=== PATIENT | male | born 1945 | race American Indian/Alaskan Native ===

== ENCOUNTER 2016-09-25 11:05 | Outpatient (CLI) | payer MEDICARE ==
--- NOTE | 2016-09-25 12:51 | Cat Scan Report ---
CT ABDOMEN AND PELVIS WITHOUT CONTRAST INDICATION: Right CVA pain. COMPARISON: None similar. FINDINGS: Noncontrast abdomen and pelvis CT performed. LUNG BASES: Borderline cardiomegaly. No effusions. Slight nonspecific distal esophageal prominence or thickening. Right hemidiaphragm mildly elevated. ABDOMEN: Please note that sensitivity to detect small visceral lesions is limited due to the absence of intravenous or oral contrast. Motion artifact also partly degrades exam. However, grossly unremarkable unenhanced liver, spleen gallbladder, pancreas and IVC. Normal adrenals, except for diffuse left adrenal medial limb prominence/hyperplasia possible. Nonaneurysmal abdominal aorta with few atherosclerotic calcifications. Bilateral iliac artery calcifications as well, borderline aneurysmal on the right at 1.5 cm diameter while mildly aneurysmal on the left at 1.8 cm, axial image 62. No ascites or definite size significant adenopathy. Nonopacified GI tract evaluation limited, though grossly nonobstructive. Normal appendix. Mild to moderate stool predominantly along the ascending and transverse colon/possible constipation. Fat containing umbilical hernia with a transverse neck of approximately 2 cm. 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 No definite radiopaque renal calculi. PELVIS: Prominent/mildly enlarged prostate, though possibly age-appropriate, may also be correlated for clinically and with PSA. Few pelvic phleboliths. Somewhat prominent, though grossly symmetric seminal vesicles. Suboptimally distended and assessed urinary bladder with diffuse exaggerated wall thickness measuring up to 1 cm anteriorly. No perivesicular fat stranding. Rectosigmoid stool. No free fluid or significant adenopathy. Fat containing left inguinal hernia measuring 2.5 cm in diameter. Multilevel imaged spinal degenerative spurring. L5-S1 disc narrowing and slight vacuum phenomenon. Bilateral SI joint degenerative bridging with partial joint space obliteration. Diffuse right hemipelvic sclerosis and slight trabecular prominence may represent Paget's disease. CONCLUSION: 1. No radiopaque renal calculi or acute CT abnormality, though right renal malrotation incidentally noted on this limited exam, as described. 2. Various other incidental findings, including mild elevated right hemidiaphragm, possible constipation, aneurysmal left common iliac artery, exaggerated urinary bladder wall thickness and fat-containing left inguinal hernia in this patient with right hemipelvic probable Paget's disease, as detailed above. Please correlate. Thank you for the opportunity to participate in this patient's care.
== END 2016-09-25 11:06 | disposition home or self-care (01) ==
LOC: CT 11:05
PROVIDERS: ATTEND Internal Medicine
DX: R10.9 Unspecified abdominal pain (principal)
CPT/HCPCS: 74176

== ENCOUNTER 2016-10-24 14:54 | Outpatient (CLI) | payer MEDICARE ==
--- NOTE | 2016-10-24 15:30 | XRay Report ---
CHEST 2 VIEWS INDICATION: Right-sided chest pain. COMPARISON: None similar. FINDINGS: PA and lateral chest radiographs demonstrate normal cardiomediastinal silhouette. Clear lungs. Bony demineralization and few degenerative changes. CONCLUSION: No acute disease in the chest. Thank you for the opportunity to participate in this patient's care.
== END 2016-10-24 14:55 | disposition home or self-care (01) ==
LOC: XRAY 14:54
PROVIDERS: ATTEND Internal Medicine
DX: R07.89 Other chest pain (principal)
CPT/HCPCS: 71020

== ENCOUNTER 2020-12-02 14:41 | Inpatient (IN) | payer MEDICARE ==
[2020-12-02] MEDS ORDERED: DEXTROSE 50% IN WATER (25GM) 50 ML SYRINGE IV PRN (17:50)
[2020-12-02] MEDS ORDERED: hydrALAZINE 20 MG/1 ML INJ IV PRN (17:55)
[2020-12-02] MEDS ORDERED: ONDANSETRON 4 MG ODT TAB PO PRN (17:55)
[2020-12-02] MEDS ORDERED: ALBUTEROL 2.5 MG/3 ML NEBU IH PRN (17:55)
[2020-12-02] MEDS ORDERED: CYCLOBENZAPRINE 10 MG TAB PO PRN (17:56)
[2020-12-02] MEDS: hydrALAZINE 25 MG TAB PO SCH (21:59)
[2020-12-02] MEDS: HEPARIN 5,000 UNIT/1 ML VIAL SUB-Q SCH (22:00)
[2020-12-02] MEDS: INSULIN LISPRO 100 UNIT/ML SUB-Q SCH (22:00)
[2020-12-02] MEDS: POLYETHYLENE GLYCOL 3350 17 GM POWDER PO PRN (22:04)
[2020-12-03] MEDS: hydrALAZINE 25 MG TAB PO SCH ×3 (05:23→22:51)
[2020-12-03] MEDS: INSULIN LISPRO 100 UNIT/ML SUB-Q SCH ×4 (07:50→22:50)
[2020-12-03 08:14] LABS: Alanine Aminotransferase 16 units/L (7-56); Albumin 3.9 g/dL (3.9-5); BUN/Creatinine Ratio 16; Blood Urea Nitrogen 14 mg/dL (9-20); Calcium 9.3 mg/dL (8.4-10.2); Hemolysis Index 11
[2020-12-03] MEDS: CLOPIDOGREL 75 MG TAB PO SCH (08:23)
[2020-12-03] MEDS: TAMSULOSIN 0.4 MG CAP PO SCH (08:23)
[2020-12-03] MEDS: ASPIRIN EC 81 MG TAB PO SCH (08:23)
[2020-12-03] MEDS: metFORMIN 500 MG TAB PO SCH ×2 (08:23→16:58)
[2020-12-03] MEDS: amLODIPine 10 MG TAB PO SCH (08:23)
[2020-12-03] MEDS: LISINOPRIL 40 MG TAB PO SCH (08:23)
[2020-12-03 08:52] LABS: Basophils % (Auto) 0.4 % (0.0-1.8); Eosinophils # (Auto) 0.2 K/mm3 (0.0-0.4); Eosinophils % (Auto) 3.2 % (0.0-4.3); Hematocrit 43.5 % (35.5-45.6); Hemoglobin 14.7 gm/dl (11.8-15.2); Lymphocytes # (Auto) 1.8 K/mm3 (1.2-5.4); Lymphocytes % (Auto) 33.3 % (13.4-35.0); Mean Corpuscular HGB Conc 34 % (32-34); Mean Corpuscular Volume 92 fl (84-94); Monocytes # (Auto) 0.6 K/mm3 (0.0-0.8); Monocytes % (Auto) 10.4 % (0.0-7.3); Platelet Count 162 K/mm3 (140-440); Red Blood Count 4.74 M/mm3 (3.65-5.03); Red Cell Distribution Width 14.8 % (13.2-15.2)
[2020-12-03] MEDS: HEPARIN 5,000 UNIT/1 ML VIAL SUB-Q SCH ×2 (09:58→22:49)
[2020-12-03] MEDS: BRIMONIDINE 0.15% OPHTH SOLN OU SCH (10:01)
--- NOTE | 2020-12-03 10:17 | History and Physical Report ---
History of Present Illness Date: 12/03/20 Date of admission: 12/02/20 19:42 Chief Complaint: CVA History of present illness: 75-year-old male brought to the hospital with difficulty speaking and gait/balance issues. Symptoms started previous day on a flight from [place] to [place] with a layover in [place] at which point he could not walk. Because of this he was outside the window for TPA and had a low stroke score. Clinical picture was not consistent with large vessel occlusion. A1c at the outside hospital was 6.0. 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 Patient had mild aphasia. He was started on a modified diet for dysphagia. He was started on IV antihypertensives for hypertensive emergency. Neurology recommends dual antipl atelet therapy for 3 weeks followed by aspirin only regimen. MRI brain performed on 11/28 showed an acute to subacute 9 mm lacunar infarct in the left leopoldo. After the patient was medically stabilized they were transferred for further rehabilitation. All available medical records have been reviewed. Plan of care was discussed with patient. Upon evaluation today, the patient had severe allodynia in the right toe. Difficult to ascertain if this was possibly gout versus central pain. Patient d enies any kind of pain like this before and states that it has just recently started. Exquisite pain to light touch however he tolerates utilizing a shoe. With a light stroke of the side or top of the first metatarsal area his foot/toe go into extensor posture. Uric acid was within normal limits, toe is not red but is slightly swollen. X-ray showed no acute changes at this area. Is very well may be an issue with central pain. Outside notes do state that the patient had several remote bilateral thalamic strokes. Will start symptomatic treatment for the pain and escalate as needed to see if we can assist him with reducing his threshold of pain. Later, the patient experienced a feeling of being flushed and hot almost like he was going to faint. This subsided with cooling off the room and helping him back to bed. Vital signs at this point were within normal limits. We will continue to watch the patient closely to ensure that he is not have any other untoward effects. Patient denied any chest pain or shortness of breath at this time. Patient checked on again after results were available and patient, and son via phone were updated on his condition and plan of care. In total, greater than 110 minutes spent with the patient and his as well as therapy today evaluating and working up the patient's new complaints as well as reviewing his outside medical records. Past History Past Medical History: diabetes, hypertension, hyperlipidemia, stroke, other (BPH) Past Surgical History: cataract removal, Other (Right heart cath, finger) Social history: lives with family, full code. denies: smoking, alcohol abuse, prescription drug abuse Family history: CAD, diabetes, hypertension, stroke Medications and Allergies Allergies Allergy/AdvReac Type Severity Reaction Status Date / Time No Known Allergies Allergy Verified 10/21/13 08:18 Home Medications Medication Instructions Recorded Confirmed Last Taken Type Aspirin 81 mg PO DAILY 10/21/13 12/02/20 10/20/13 10:00 History Lisinopril [Zestril] 10 mg PO DAILY 10/21/13 12/02/20 10/20/13 10:00 History amLODIPine 10 mg PO DAILY 10/21/13 12/02/20 10/20/13 10:00 History AtorvaSTATin [Lipitor] 20 mg PO DAILY 12/02/20 12/02/20 Unknown History Brimonidine Tartrate [Brimonidine 1 drop OU BID 12/02/20 12/02/20 Unknown History Tartrate 0.2%] Tamsulosin [Flomax] 0.4 mg PO QDAY 12/02/20 12/02/20 Unknown History metFORMIN [Glucophage] 500 mg PO DAILY 12/02/20 12/02/20 Unknown History Active Meds: Active Medications Acetaminophen (Acetaminophen 325 Mg Tab) 650 mg PO Q6H PRN PRN Reason: Non Cardiac Pain or Temp>100.5 Albuterol (Albuterol 2.5 Mg/3 Ml Nebu) 2.5 mg IH Q4HRT PRN PRN Reason: Shortness Of Breath Amlodipine Besylate (Amlodipine 10 Mg Tab) 10 mg PO QDAY [facility] Last Admin: 12/03/20 08:23 Dose: 10 mg Documented by: Aspirin (Aspirin Ec 81 Mg Tab) 81 mg PO QDAY [facility] Last Admin: 12/03/20 08:23 Dose: 81 mg Documented by: Atorvastatin Calcium (Atorvastatin 20 Mg Tab) 20 mg PO QHS [facility] Last Admin: 12/02/20 21:59 Dose: 20 mg Documented by: Bisacodyl (Bisacodyl 10 Mg Rect Supp) 10 mg ME QDAY PRN PRN Reason: Constipation Brimonidine Tartrate (Brimonidine 0.15% Ophth Soln) 1 drops OU DAILY [facility] Last Admin: 12/03/20 10:01 Dose: 1 drops Documented by: Clopidogrel Bisulfate (Clopidogrel 75 Mg Tab) 75 mg PO QDAY [facility] Stop: 12/24/20 09:59 Last Admin: 12/03/20 08:23 Dose: 75 mg Documented by: Cyclobenzaprine HCl (Cyclobenzaprine 10 Mg Tab) 5 mg PO Q8H PRN PRN Reason: Muscle Spasm Dextrose (Dextrose 50% In Water (25gm) 50 Ml Syringe) 50 ml IV Q30MIN PRN; Protocol PRN Reason: Hypoglycemia Heparin Sodium (Porcine) (Heparin 5,000 Unit/1 Ml Vial) 5,000 unit SUB-Q Q12HR [facility] Last Admin: 12/03/20 09:58 Dose: 5,000 unit Documented by: Hydralazine HCl (Hydralazine 20 Mg/1 Ml Inj) 10 mg IV Q4HR PRN PRN Reason: Hypertension Hydralazine HCl (Hydralazine 25 Mg Tab) 25 mg PO Q8HR [facility] Last Admin: 12/03/20 05:23 Dose: 25 mg Documented by: Insulin Human Lispro (Insulin Lispro 100 Unit/Ml) 0 unit SUB-Q [facility]; Protocol Last Admin: 12/03/20 07:50 Dose: Not Given Documented by: Lisinopril (Lisinopril 40 Mg Tab) 40 mg PO QDAY [facility] Last Admin: 12/03/20 08:23 Dose: 40 mg Documented by: Metformin HCl (Metformin 500 Mg Tab) 500 mg PO BIDDIAB [facility] Last Admin: 12/03/20 08:23 Dose: 500 mg Documented by: Ondansetron HCl (Ondansetron 4 Mg Odt Tab) 4 mg PO Q8H PRN PRN Reason: Nausea And Vomiting Polyethylene Glycol (Polyethylene Glycol 3350 17 Gm Powder) 17 gm PO QDAY PRN PRN Reason: Constipation Last Admin: 12/02/20 22:04 Dose: 17 gm Documented by: Tamsulosin HCl (Tamsulosin 0.4 Mg Cap) 0.4 mg PO QDAY [facility] Last Admin: 12/03/20 08:23 Dose: 0.4 mg Documented by: Review of Systems All systems: negative (ROS negative for 10 systems except as noted below with pertinent positives and negatives.) Constitutional: fatigue, no fever, no chills Ears, nose, mouth and throat: decreased hearing, dysphagia, vertigo Cardiovascular: lightheadedness, no chest pain, no palpitations, no rapid/irreg ular heart beat, no edema Respiratory: no cough, no shortness of breath Gastrointestinal: no abdominal pain, no nausea, no vomiting, no diarrhea, no c onstipation Genitourinary Male: no dysuria Musculoskeletal: muscle weakness, gait dysfunction, other (Right great toe pain) Integumentary: no rash, no pruritis, no sores Neurological: weakness, parathesias, numbness, lack of coordination, aphasia, change in speech, gait dysfunction, burning pain (Allodynia right great toe) Psychiatric: no memory loss, no hallucinations Exam - Exam Narrative exam: MUSCULOSKELETAL SPECIALTY EXAM CONSTITUTIONAL: Well developed, well nourished, appropriately groomed. RIGHT hand dominant. LYMPHATIC: No appreciable abnormalities palpable in neck RESPIRATORY: Clear to auscultation bilaterally, no increased work of breathing CARDIOVASCULAR: Regular Rate/ Rhythm, no swelling, edema or tenderness in BUE or BLE. Pulses palpable in all extremities. All extremities warm. GI: + bowel sounds, soft, NTTP, nondistended. INTEGUMENTARY: Normal, no lesion, rash, masses or bruising noted in extremities. MUSCULOSKELETAL: Allodynia right great toe with extremely light touch over the first metatarsal area. BUE and BLE normal without defect, crepitus, subluxation, effusion, arthritic changes or TTP. R 2 /5 L 4+ /5 ROM decreased on right, normal on left Tone normal NEURO: CN II : Visual roy full to confrontation CN II, III : PERRL CN III, IV, : EOMI CN V : Facial sensation intact CN VII : Right facial droop CN VIII : Hearing intact to finger rustle with decreased hearing bilaterally CN IX, X : Palate/uvula elevate midline, dysarthria CN XI : Head rotation intact, decreased right shoulder shrug CN XII : Tongue protrudes slightly right Sensation intact in all extremities without extinction. Reflexes 2+ bilaterally at biceps, brachioradialis and patella. No clonus at ankles. Coordination impaired on right. No tremor noted in 4 extremities. Naming and repetition difficult to ascertain due to dysarthria Follows 2 step commands. Aphasia present Dysarthria present Dysphagia present Neglect not appreciated POSTURE and GAIT: Sitting posture good. Balance and gait deferred until seen with therapy due to s afety. PSYCH: Alert, oriented x3, affect appears euthymic. Insight appears intact. - Constitutional Vitals: Vital Signs - 12hr 12/03/20 12/03/20 12/03/20 04:22 05:23 07:44 Temperature 98.1 F 97.4 F L Pulse Rate 77 79 Respiratory 20 16 Rate Blood Pressure 144/83 144/83 148/85 O2 Sat by Pulse 95 94 Oximetry 12/03/20 12/03/20 08:23 08:30 Temperature Pulse Rate 79 Respiratory Rate Blood Pressure 148/85 O2 Sat by Pulse 94 Oximetry - Labs CBC & Chem 7: 12/03/20 06:56 12/03/20 06:56 Labs: Laboratory Results - last 72 hr 12/02/20 12/03/20 12/03/20 21:47 06:56 06:56 WBC 5.3 RBC 4.74 Hgb 14.7 Hct 43.5 MCV 92 MCH 31 MCHC 34 RDW 14.8 Plt Count 162 Lymph % (Auto) 33.3 [place] % (Auto) 10.4 H Eos % (Auto) 3.2 Baso % (Auto) 0.4 Lymph # (Auto) 1.8 [place] # (Auto) 0.6 Eos # (Auto) 0.2 Baso # (Auto) 0.0 Seg Neutrophils % 52.7 Seg Neutrophils # 2.8 Sodium 139 Potassium 3.8 Chloride 102.4 Carbon Dioxide 26 Anion Gap 14 BUN 14 Creatinine 0.9 Estimated GFR > 60 BUN/Creatinine Ratio 16 Glucose 92 POC Glucose 130 H Calcium 9.3 Total Bilirubin 0.60 AST 20 ALT 16 Alkaline Phosphatase 178 H Total Protein 7.0 Albumin 3.9 Albumin/Globulin Ratio 1.3 - Imaging and cardiology Other: report reviewed (Right foot x-ray), image reviewed Assessment and Plan Assessment and plan: Patient was assessed and evaluated for Acute Inpatient Rehab Unit. Due to the patients above-mentioned medical complexity, along with decreased functional mobility and self care, this patient continues to require and be appropriate for a comprehensive, multidisciplinary [id number] rehabilitation program. These needs cannot be met in an outpatient or other less intensive setting. The patient would continue to benefit from skilled therapy intervention for at least 3 hours per day, five days a week, with techniques specific to the needs of the patient to improve function, activities of daily living, and reintegration into the community. The patient continues to require: -- OT to improve ROM, self-care, and learn use of adaptive equipment -- PT to improve strength and balance, functional transfers, and ambulation with energy conservation techniques to improve functional mobility -- TOASTER OPERATOR to address cognitive deficits and swallowing ability -- 24 hour RN to ensure and prevent skin breakdown, promote progressive independence while ensuring safety, ensure education regarding medications, and incorporation of the rehabilitation at the bedside -- 24 hour Director Of Education to coordinate this interdisciplinary program, and to manage/prevent complications as a result of the patients medical comorbidities. -Plan of care by day 4 -Weekly team conferences With such a program, there is a reasonable certainty that the goals individualized for this patient can be achieved within the specified length of stay. CVA: Continue Secondary Stroke Prevention (Antithrombotic, Statin (Goal LDL-C <70), BP control (Goal <140/90), GLU control (Goal A1c <7), and lifestyle modification). Monitor for recurrent stroke or post-stroke recrudescence. Dual antiplatelet therapy for 21 days followed by aspirin alone. Statin okay to continue at lower dose as lipids are at goal. Continue neuromotor therapy as above. Family training when available. Monitor for post stroke depression, cognitive deficits, seizure, dysphagia, aphasia, shoulder hand syndrome, sensory deficits, spasticity, bowel/bladder deficits, sleep disturbance, vision deficits and DVT. Prognosis for recovery and Secondary Stroke Prevention discussed. Follow up with Neurology. No driving until cleared by Neurologist. MRI showed an acute/subacute 9 mm left leopoldo lacunar infarct. 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 Hypertension: Continue medication. Monitor blood pressure. Adjust medications as needed for normotension. Hold for hypotension. Goal SBP <140 Diabetes: Continue carb controlled diet. Monitor glucose on a regular level with target of euglycemia. Patient's most recent A1c is 6.0. Patient previously diet controlled. We will continue sliding scale and monitor for need to start any other medications. BPH: Continue Flomax, monitor for any signs of bladder dysfunction or incontinence. 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 Monitor for resolution over the coming days and escalate medication as needed. Dysarthria: Continue speech therapy to improve patient's ability to enunciate and make himself clearly understood. Aphasia: Continue speech therapy to improve patient's ability to communicate. At this point does not appear the patient will need alternative means of communication and hopefully this will clear over the coming days. Dysphagia: Continue modified diet. Speech therapy on board to monitor and upgrade diet as able once patient is able to swallow safely. MBS as needed. Monitor for safety and aspiration precautions in place. ADL dysfunction: OT will work on improving ability to perform ADLs (including assistive devices) to increase independence and decrease caregiver burden and improve functional transfers and mobility training. Difficulty walking: PT will work on gait training and proper use of assistive devices and advance as appropriate to use of stairs and outside ambulation on uneven surfaces. Unsteadiness on feet: PT will work on improving static and dynamic sitting and standing balance as well as proper use of assistive devices to decrease risk of falls. Abnormality of gait: PT will work to improve safety and efficiency of gait through neuromotor training and gait training along with instruction on proper use of assistive devices. Muscle weakness: PT & OT will work on strengthening exercises to improve functional strength including mixture of closed and open kinetic chain ex ercises. Debility: PT & OT will work on improving overall functional status to improve participation with ADLs, mobility and social involvement. Fatigue: PT & OT will work on improving endurance through aerobic exercises and therapeutic activity while monitoring patients tolerance for activity and vital signs as needed. DVT ppx: Heparin twice daily Pain: Continue physical modalities in therapy and pain medications as needed to achieve functional pain control. Sleep: Monitor and address as needed. Bowel: Monitor and address as needed. Appetite: Monitor and address as needed. Discharge planning: Pending therapy progress and care plan meeting. Will continue discussion with therapy team, SW, patient and family. Restrictions/ Precautions: Falls, aspiration WB status: FWB Functional Hx: ADLs: Independent Cognition: Independent Mobility: No AD Barriers to Discharge: Decreased mobility and ability to perform self care, balance deficits, weakness Estimated Length of Stay: 1014 days Discharge Destination: Home with family POST ADMISSION PHYSICIAN EVALUATION I have examined the patient and find that functional status, medical condition and appropriateness for IRF admission are essentially unchanged from those described in the preadmission screening. Will monitor for worsening neurologic dysfunction or decline, secondary stroke, shoulder-hand syndrome, central pain syndrome, sleep dysfunction, aspiration pneumonia, DVT/PE, bowel and bladder complications and complications due to hypertension, diabetes and electrolyte abnormalities. Will attempt to avoid occurrence of these issues or treat them if they present themselves.
--- NOTE | 2020-12-03 14:11 | XRay Report ---
. RIGHT FOOT 3 VIEWS INDICATION: Pain in the right MTP. COMPARISON: None. IMPRESSION: Bone mineralization is borderline. No acute osseous injury or bone lesion is identified. Mild osteoarthritic changes are identified in the midfoot and first metatarsophalangeal joint. No er osive joint pathology. The soft tissues are unremarkable. Signer Name: Dave Garcia Jr, MD Signed: 12/03/2020 2:07 PM Workstation Name: [id number]
[2020-12-03] MEDS: ACETAMINOPHEN 325 MG TAB PO PRN (22:53)
[2020-12-04] MEDS: hydrALAZINE 25 MG TAB PO SCH ×3 (06:27→22:07)
--- NOTE | 2020-12-04 07:58 | Progress Note ---
Subjective Date of service: 12/04/20 Principal diagnosis: CVA Interval history: 75-year-old male brought to the hospital with difficulty speaking and gait/balance issues. Symptoms started previous day on a flight from [place] to [place] with a layover in [place] at which point he could not walk. Because of this he was outside the window for TPA and had a low stroke score. Clinical picture was not consistent with large vessel occlusion. A1c at the outside hospital was 6.0. 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 Patient had mild aphasia. He was started on a modified diet for dysphagia. He was started on IV antihypertensives for hypertensive emergency. Neurology recommends dual antiplatelet therapy for 3 weeks followed by aspirin only regimen. MRI brain performed on 11/28 showed an acute to subacute 9 mm lacunar infarct in the left leopoldo. Interval History: Patient is participating in therapy and making reasonable progress. Taking rest breaks as needed. +BM. Denies pain, palpitations, dyspnea, cough, N/V, or joint pain. CVA: Continue secondary stroke prevention. No signs of worsening neurologic function, shoulder-hand syndrome or spasticity. Continue therapy to improve function. Resting hand splint for right upper extremity to improve function, increase stretching during time out of therapy and reduce risk of contracture. Hypertension: Patient mostly at goal with blood pressure. Continue to monitor and modify dose to keep patient less than 140/90 Diabetes: Fairly well controlled so far. Continue carb controlled diet and medications and adjust for euglycemia. Dysarthria: Continue speech therapy to improve patient's ability to enunciate more clearly. Aphasia: Continue speech therapy to improve patient's ability to communicate and make his needs known. Dysphagia: Continue modified diet and speech therapy. MBS as needed. Advance as able ? Central pain syndrome? Allodynia of right great toe: Improved today. Patient did not have any reaction to pressure on the same area which caused a increased reaction yesterday. We will continue to monitor for any more outbreaks and start medications if needed. At this point, would tend to not start medications on a scheduled basis if it has improved significantly. All records, vitals, labs and medications were reviewed. No other issues per patient, nursing or therapy. Objective - Exam Narrative Exam: MUSCULOSKELETAL SPECIALTY EXAM CONSTITUTIONAL: Well developed, well nourished, appropriately groomed. RIGHT hand dominant. RESPIRATORY: Clear to auscultation bilaterally, no increased work of breathing CARDIOVASCULAR: Regular Rate/ Rhythm, no swelling, edema or tenderness in BUE or BLE. Pulses palpable in all extremities. All extremities warm. GI: + bowel sounds, soft, NTTP, nondistended. INTEGUMENTARY: Normal, no lesion, rash, masses or bruising noted in extremities. MUSCULOSKELETAL: Allodynia right great toe over the first metatarsal area not tender to palpation today. BUE and BLE normal without defect, crepitus, subluxation, effusion, arthritic changes or TTP. R 2 /5 L 4+ /5 ROM decreased on right, normal on left Tone normal NEURO: CN VII : Right facial droop CN VIII : Hearing intact to finger rustle with decreased hearing bilaterally CN XI : Head rotation intact, decreased right shoulder shrug CN XII : Tongue protrudes slightly right Sensation intact in all extremities without extinction. No tremor noted in 4 extremities. Follows 2 step commands. Aphasia present Dysarthria present Dysphagia present Neglect not appreciated POSTURE and GAIT: Sitting posture good. Balance and gait deferred until seen with therapy due to safety. PSYCH: Alert, oriented x3, affect appears euthymic. Insight appears intact. - Constitutional Vitals: Vital Signs - 12hr 12/03/20 12/03/20 12/03/20 19:59 21:34 22:51 Temperature 97.8 F Pulse Rate 79 Respiratory 18 Rate Blood Pressure 145/85 Blood Pressure 141/87 [Left] O2 Sat by Pulse 95 97 Oximetry 12/04/20 12/04/20 12/04/20 04:00 06:27 06:43 Temperature 97.6 F 98.5 F Pulse Rate 79 82 Respiratory 18 18 Rate Blood Pressure 143/86 129/77 Blood Pressure 145/76 [Left] O2 Sat by Pulse 95 95 Oximetry - Allied health notes Allied health notes reviewed: nursing, PT, ST, OT FIMS assessment as documented by PT/OT/ST: Locomotion- walk/wheelchair Ambulation Distance 1 - Labs CBC & Chem 7: 12/03/20 06:56 12/03/20 06:56 Labs: Laboratory Results - last 72 hr 12/02/20 12/03/20 12/03/20 21:47 06:56 06:56 WBC 5.3 RBC 4.74 Hgb 14.7 Hct 43.5 MCV 92 MCH 31 MCHC 34 RDW 14.8 Plt Count 162 Lymph % (Auto) 33.3 Tucker % (Auto) 10.4 H Eos % (Auto) 3.2 Baso % (Auto) 0.4 Lymph # (Auto) 1.8 Tucker # (Auto) 0.6 Eos # (Auto) 0.2 Baso # (Auto) 0.0 Seg Neutrophils % 52.7 Seg Neutrophils # 2.8 Sodium 139 Potassium 3.8 Chloride 102.4 Carbon Dioxide 26 Anion Gap 14 BUN 14 Creatinine 0.9 Estimated GFR > 60 BUN/Creatinine Ratio 16 Glucose 92 POC Glucose 130 H Uric Acid Calcium 9.3 Total Bilirubin 0.60 AST 20 ALT 16 Alkaline Phosphatase 178 H Total Protein 7.0 Albumin 3.9 Albumin/Globulin Ratio 1.3 12/03/20 12/03/20 12/03/20 08:42 13:56 16:52 WBC RBC Hgb Hct MCV MCH MCHC RDW Plt Count Lymph % (Auto) Tucker % (Auto) Eos % (Auto) Baso % (Auto) Lymph # (Auto) Tucker # (Auto) Eos # (Auto) Baso # (Auto) Seg Neutrophils % Seg Neutrophils # Sodium Potassium Chloride Carbon Dioxide Anion Gap BUN Creatinine Estimated GFR BUN/Creatinine Ratio Glucose POC Glucose 117 H 160 H Uric Acid 6.9 Calcium Total Bilirubin AST ALT Alkaline Phosphatase Total Protein Albumin Albumin/Globulin Ratio 12/03/20 12/04/20 21:08 07:43 WBC RBC Hgb Hct MCV MCH MCHC RDW Plt Count Lymph % (Auto) Tucker % (Auto) Eos % (Auto) Baso % (Auto) Lymph # (Auto) Tucker # (Auto) Eos # (Auto) Baso # (Auto) Seg Neutrophils % Seg Neutrophils # Sodium Potassium Chloride Carbon Dioxide Anion Gap BUN Creatinine Estimated GFR BUN/Creatinine Ratio Glucose POC Glucose 100 95 Uric Acid Calcium Total Bilirubin AST ALT Alkaline Phosphatase Total Protein Albumin Albumin/Globulin Ratio Assessment and Plan CVA: Continue Secondary Stroke Prevention (Antithrombotic, Statin (Goal LDL-C <70), BP control (Goal <140/90), GLU control (Goal A1c <7), and lifestyle modification). Monitor for recurrent stroke or post-stroke recrudescence. Dual antiplatelet therapy for 21 days followed by aspirin alone. Statin okay to continue at lower dose as lipids are at goal. Continue neuromotor therapy as above. Family training when available. Monitor for post stroke depression, cognitive deficits, seizure, dysphagia, aphasia, shoulder hand syndrome, sensory deficits, spasticity, bowel/bladder deficits, sleep disturbance, vision deficits and DVT. Prognosis for recovery and Secondary Stroke Prevention discussed. Follow up with Neurology. No driving until cleared by Neurologist. MRI showed an acute/subacute 9 mm left leopoldo lacunar infarct. 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 Hypertension: Continue medication. Monitor blood pressure. Adjust medications as needed for normotension. Hold for hypotension. Goal SBP <140 Diabetes: Continue carb controlled diet. Monitor glucose on a regular level with target of euglycemia. Patient's most recent A1c is 6.0. Patient previously diet controlled. We will continue sliding scale and monitor for need to start any other medications. BPH: Continue Flomax, monitor for any signs of bladder dysfunction or incontinence. 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 Stepwise progression of NSAIDs with progression to include gabapentin and possible other medications. Monitor for resolution over the coming days and escalate medication as needed. Dysarthria: Continue speech therapy to improve patient's ability to enunciate and make himself clearly understood. Aphasia: Continue speech therapy to improve patient's ability to communicate. At this point does not appear the patient will need alternative means of communication and hopefully this will clear over the coming days. Dysphagia: Continue modified diet. Speech therapy on board to monitor and upgrade diet as able once patient is able to swallow safely. MBS as needed. Monitor for safety and aspiration precautions in place. ADL dysfunction: OT will work on improving ability to perform ADLs (including assistive devices) to increase independence and decrease caregiver burden and improve functional transfers and mobility training. Difficulty walking: PT will work on gait training and proper use of assistive devices and advance as appropriate to use of stairs and outside ambulation on uneven surfaces. Unsteadiness on feet: PT will work on improving static and dynamic sitting and standing balance as well as proper use of assistive devices to decrease risk of falls. Abnormality of gait: PT will work to improve safety and efficiency of gait through neuromotor training and gait training along with instruction on proper use of assistive devices. Muscle weakness: PT & OT will work on strengthening exercises to improve functional strength including mixture of closed and open kinetic chain exercises. Debility: PT & OT will work on improving overall functional status to improve participation with ADLs, mobility and social involvement. Fatigue: PT & OT will work on improving endurance through aerobic exercises and therapeutic activity while monitoring patients tolerance for activity and vital signs as needed. DVT ppx: Heparin twice daily Pain: Continue physical modalities in therapy and pain medications as needed to achieve functional pain control. Sleep: Monitor and address as needed. Bowel: Monitor and address as needed. Appetite: Monitor and address as needed. Discharge planning: Pending therapy progress and care plan meeting. Will continue discussion with therapy team, SW, patient and family. Restrictions/ Precautions: Falls, aspiration WB status: FWB Functional Hx: ADLs: Independent Cognition: Independent Mobility: No AD Barriers to Discharge: Decreased mobility and ability to perform self care, balance deficits, weakness Estimated Length of Stay: 1014 days Discharge Destination: Home with family
[2020-12-04] MEDS: TAMSULOSIN 0.4 MG CAP PO SCH (09:08)
[2020-12-04] MEDS: CLOPIDOGREL 75 MG TAB PO SCH (09:08)
[2020-12-04] MEDS: amLODIPine 10 MG TAB PO SCH (09:08)
[2020-12-04] MEDS: LISINOPRIL 40 MG TAB PO SCH (09:09)
[2020-12-04] MEDS: ASPIRIN EC 81 MG TAB PO SCH (09:09)
[2020-12-04] MEDS: HEPARIN 5,000 UNIT/1 ML VIAL SUB-Q SCH ×2 (09:09→22:07)
[2020-12-04] MEDS: metFORMIN 500 MG TAB PO SCH ×2 (09:09→17:47)
[2020-12-04] MEDS: INSULIN LISPRO 100 UNIT/ML SUB-Q SCH ×4 (09:16→22:11)
[2020-12-04] MEDS: BRIMONIDINE 0.15% OPHTH SOLN OU SCH (09:17)
[2020-12-04] MEDS: POLYETHYLENE GLYCOL 3350 17 GM POWDER PO PRN (13:17)
--- NOTE | 2020-12-04 20:09 | IRU Plan of Care ---
Interdisciplinary Plan of Care - IP IRU INTERDISCIPLINARY PLAN: [facility] Inpatient Rehab Unit Plan of Care IRU Interdisciplinary Care Plan Start: 12/03/20 12:05 Freq: Status: Active Protocol: Document 12/04/20 18:40 TH (Rec: 12/04/20 18:53 TH [id number]) Interdisciplinary Problem List Interdisciplinary Problem List Interdisciplinary Problem List Impaired Eating/Swallowing, Query Text:Answers will Trigger Problems Impaired Bathing/Grooming, and Outcomes on Worklist. Impaired Dressing,Impaired Mobility,Impaired Transfers, Impaired Bladder/Bowel Management,Impaired Toileting, Impaired Expression,Knowledge Deficits,Discharge Concerns, Impaired Safety,Medications Education,Diabetes Education, Impaired Oxygenation,Impaired Cardiovascular System IRU Interdisciplinary Care Plan Therapy Services Therapy Services Will Include: Physical Therapy,Occupational Query Text:Patient will be seen for a Therapy,Speech Therapy minimum of 3 hours of daily therapy 5 out of 7 days a week. Therapy intensity may be adjusted within a 7 consecutive day period to effectively serve the individual needs of the patient. Treatment Frequency/Intensity/Duration Treatment Frequency 5x weekly Treatment Intensity 3 hours per day Treatment Duration 7-14 days Problem Area: Eating/Swallowing Eating/Swallowing Outcomes Feed Self Eating/Swallowing Interventions Use of Assistive Devices, Compensatory Strategies, Neuromuscular Re-Education,ADL Training,Patient/Caregiver Education Problem Area: Bathing/Grooming Bathing/Grooming Outcomes Improve [place] w/ Grooming,Improve [place] w/ Bathing Bathing/Grooming Interventions ADL Training,Use of Assistive Devices,Therapeutic Exercise, Therapeutic Activity, Neuromuscular Re-Education, Balance Work,Activity Tolerance Work,Patient/ Caregiver Education Problem Area: Dressing Dressing Outcomes Improve [place] w/ UB Dressing,Improve [place] w/ LB Dressing Dressing Interventions ADL Training,Use of Assistive Devices,Neuromuscular Re- Education,Therapeutic Exercise ,Balance Work,Modalities, Patient/Caregiver Education Problem Area: Mobility Mobility Outcomes Improve [place] w/ Bed Mobility,Improve [place] w/ Ambulation,Improve [place] w/ Stairs/Curb, Improve [place] w/ Wheelchair Mobility Interventions Therapeutic Exercise, Neuromuscular Re-Ed.,Activity Tolerance Work,Use of Assistive Devices,Patient/ Caregiver Education,Bed Mobility Work,Gait Training, Household Mobility Work,W/C Mobility Work Problem Area: Transfers Transfers Outcomes Improve [place] w/ Bed Transfers,Improve [place] w/ Car Transfers Transfers Interventions Transfer Training,Therapeutic Exercise,Neuromuscular Re- Education,Activity Tolerance Work,Use of Assistive Devices, Patient/Caregiver Education Problem Area: Bowel/Bladder Managment Bowel/Bladder Outcomes Bowel/Bladder Interventions Problem Area: Toileting Toileting Outcomes Improve [place] w/ Toileting Toileting Interventions ADL Training,Balance Work,Use of Assistive Devices,Patient/ Caregiver Education Problem Area: Nutrition Nutrition Outcomes Nutrition Interventions Problem Area: Comprehension Comprehension Outcomes Comprehension Interventions Problem Area: Expression Expression Outcomes Improve Intelligibility Expression Interventions Patient/Caregiver Education Problem Area: Problem Solving Problem Solving Outcomes Problem Solving Interventions Problem Area: Memory Memory Outcomes Memory Interventions Problem Area: Pain Management Pain Management Outcomes Demonstrate/Verbalize Pain Strategies Pain Management Interventions Use of Devices/Modalities ( TENS, hot pack, cold pack, etc .),Positioning/Turning Problem Area: Knowledge Deficits Knowledge Deficits Outcomes Demonstrate Ability to Manage Blood Glucose,Verbalize Understanding of S/S of Stroke Knowledge Deficits Interventions Body Mechanics/Joint Protection Education,Safety Education Problem Area: Skin/Tissue Integrity Skin/Tissue Integrity Outcomes Skin/Tissue Integrity Interventions Problem Area: Social Interaction Social Interaction Outcomes Social Interaction Interventions Problem Area: Adjustment to Disability Adjustment to Disability Outcomes Adjustment to Disability Interventions Problem Area: Discharge Concerns Discharge Concerns Outcomes Discharge w/ Necessary Equipment,Have Home Health/ Outpatient Services Discharge Concerns Interventions Discharge Planning,Equipment Assessment, Acquisition and Placement,Family/Caregiver Training Problem Area: Community Reintegration Community Reintegration Outcomes Community Reintegration Interventions Problem Area: Home Management Home Management Outcomes Home Management Interventions Problem Area: Safety Safety Outcomes Provide Safe Environment, Demonstrate Good Safety w/ Transfers/Mobility Safety Interventions Identify Fall Risk Problem Area: Medication Education Medication Education Outcomes Medication Education Interventions Problem Area: Diabetes Education Diabetes Education Outcomes Demonstrate Knowledge of Resources Availlable in Diabetic Ed. Folder Diabetes Education Interventions Give Pt. Diabetes Education Folder,Review Instruction on Making Appointment for Outpatient Program Problem Area: Oxygenation Oxygenation Outcomes Oxygenation Interventions Problem Area: Cardiovascular Cardiovascular Outcomes Maintain or Improve Cardiovascular Status Cardiovascular Interventions Assess Vital Signs at least Every 4 hours,Cardiac Monitoring, EKG and ABG as Ordered. Physician Only Medical Prognosis and Rehabilitation Good rehab potential good prognosis Potential (Completed by Physician) This plan of care has been developed based on the findings from the pre- admission assessment, post admission physician evaluation, information gathered from the assessments from all therapy disciplines and other pertinent clinicians. The plan of care has been reviewed and discussed in collaboration with the interdisciplinary team. The plan of care will be reviewed and updated at least weekly.
[2020-12-04] MEDS: ACETAMINOPHEN 325 MG TAB PO PRN (22:07)
[2020-12-05] MEDS: hydrALAZINE 25 MG TAB PO SCH ×3 (06:30→22:17)
[2020-12-05] MEDS: INSULIN LISPRO 100 UNIT/ML SUB-Q SCH ×4 (09:10→23:46)
[2020-12-05] MEDS: ASPIRIN EC 81 MG TAB PO SCH (09:31)
[2020-12-05] MEDS: LISINOPRIL 40 MG TAB PO SCH (09:31)
[2020-12-05] MEDS: amLODIPine 10 MG TAB PO SCH (09:31)
[2020-12-05] MEDS: metFORMIN 500 MG TAB PO SCH ×2 (09:31→16:54)
[2020-12-05] MEDS: CLOPIDOGREL 75 MG TAB PO SCH (09:32)
[2020-12-05] MEDS: HEPARIN 5,000 UNIT/1 ML VIAL SUB-Q SCH ×2 (09:32→22:18)
[2020-12-05] MEDS: TAMSULOSIN 0.4 MG CAP PO SCH (09:32)
[2020-12-05] MEDS: BRIMONIDINE 0.15% OPHTH SOLN OU SCH (09:45)
[2020-12-05] MEDS: ACETAMINOPHEN 325 MG TAB PO PRN (22:17)
[2020-12-06] MEDS: hydrALAZINE 25 MG TAB PO SCH ×3 (08:07→22:43)
--- NOTE | 2020-12-06 08:31 | Progress Note ---
Subjective Date of service: 12/06/20 Principal diagnosis: CVA Interval history: 75-year-old male brought to the hospital with difficulty speaking and gait/balance issues. Symptoms started previous day on a flight from [place] to [place] with a layover in [place] at which point he could not walk. Because of this he was outside the window for TPA and had a low stroke score. Clinical picture was not consistent with large vessel occlusion. A1c at the outside hospital was 6.0. 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 Patient had mild aphasia. He was started on a modified diet for dysphagia. He was started on IV antihypertensives for hypertensive emergency. Neurology recommends dual antiplatelet therapy for 3 weeks followed by aspirin only regimen. MRI brain performed on 11/28 showed an acute to subacute 9 mm lacunar infarct in the left leopoldo. Interval History: Patient is participating in therapy and making reasonable progress. Taking rest breaks as needed. +BM. Denies pain, palpitations, dyspnea, cough, N/V, or joint pain. CVA: Continue secondary stroke prevention. No signs of worsening neurologic function, shoulder-hand syndrome or spasticity. Continue therapy to improve function. Resting hand splint for right upper extremity to improve function, increase stretching during time out of therapy and reduce risk of contracture. Hypertension: Patient mostly at goal with blood pressure. Continue to monitor and modify dose to keep patient less than 140/90 Diabetes: Fairly well controlled so far. Continue carb controlled diet and medications and adjust for euglycemia. Dysarthria: Continue speech therapy to improve patient's ability to enunciate more clearly. Patient somewhat understandable Aphasia: Continue speech therapy to improve patient's ability to communicate and make his needs known. Dysphagia: Continue modified diet and speech therapy. MBS as needed. Advance as able ? Central pain syndrome? Allodynia of right great toe: Improved today. Patient did not have any reaction to pressure on the same area which caused a increased reaction last week. Uncertain if this was actually central pain syndrome previously or some other issue. Appears that it is resolving. Will monitor over the next couple of days and consider resolved if he has no further symptoms. All records, vitals, labs and medications were reviewed. No other issues per patient, nursing or therapy. Objective - Exam Narrative Exam: MUSCULOSKELETAL SPECIALTY EXAM CONSTITUTIONAL: Well developed, well nourished, appropriately groomed. RIGHT hand dominant. RESPIRATORY: Clear to auscultation bilaterally, no increased work of breathing CARDIOVASCULAR: Regular Rate/ Rhythm, no swelling, edema or tenderness in BUE or BLE. Pulses palpable in all extremities. All extremities warm. GI: + bowel sounds, soft, NTTP, nondistended. INTEGUMENTARY: Normal, no lesion, rash, masses or bruising noted in extremities. MUSCULOSKELETAL: Right great toe over the first metatarsal area not tender to palpation today. BUE and BLE normal without defect, crepitus, subluxation, effusion, arthritic changes or TTP. Resting hand splint on right upper extremity. R 2 /5 L 4+ /5 ROM decreased on right, normal on left Tone normal NEURO: CN VII : Right facial droop CN VIII : Hearing intact to finger rustle with decreased hearing bilaterally CN XI : Head rotation intact, decreased right shoulder shrug CN XII : Tongue protrudes slightly right Sensation intact in all extremities without extinction. No tremor noted in 4 extremities. Follows 2 step commands. Aphasia present Dysarthria present Dysphagia present Neglect not appreciated POSTURE and GAIT: Sitting posture good. Balance and gait deferred until seen with therapy due to safety. PSYCH: Alert, oriented x3, affect appears euthymic. Insight appears intact. - Constitutional Vitals: Vital Signs - 12hr 12/06/20 07:09 Temperature 98.4 F Pulse Rate 77 Respiratory 16 Rate Blood Pressure 132/77 O2 Sat by Pulse 95 Oximetry - Allied health notes Allied health notes reviewed: nursing, PT, ST, OT FIMS assessment as documented by PT/OT/ST: Locomotion- walk/wheelchair Ambulation Distance 1 - Labs CBC & Chem 7: 12/03/20 06:56 12/03/20 06:56 Labs: Laboratory Results - last 72 hr 12/03/20 12/03/20 12/03/20 06:56 08:42 13:56 WBC 5.3 RBC 4.74 Hgb 14.7 Hct 43.5 MCV 92 MCH 31 MCHC 34 RDW 14.8 Plt Count 162 Lymph % (Auto) 33.3 [place] % (Auto) 10.4 H Eos % (Auto) 3.2 Baso % (Auto) 0.4 Lymph # (Auto) 1.8 [place] # (Auto) 0.6 Eos # (Auto) 0.2 Baso # (Auto) 0.0 Seg Neutrophils % 52.7 Seg Neutrophils # 2.8 POC Glucose 117 H Uric Acid 6.9 12/03/20 12/03/20 12/04/20 16:52 21:08 07:43 WBC RBC Hgb Hct MCV MCH MCHC RDW Plt Count Lymph % (Auto) [place] % (Auto) Eos % (Auto) Baso % (Auto) Lymph # (Auto) [place] # (Auto) Eos # (Auto) Baso # (Auto) Seg Neutrophils % Seg Neutrophils # POC Glucose 160 H 100 95 Uric Acid 12/04/20 12/04/20 12/04/20 11:29 16:22 21:37 WBC RBC Hgb Hct MCV MCH MCHC RDW Plt Count Lymph % (Auto) [place] % (Auto) Eos % (Auto) Baso % (Auto) Lymph # (Auto) [place] # (Auto) Eos # (Auto) Baso # (Auto) Seg Neutrophils % Seg Neutrophils # POC Glucose 85 104 99 Uric Acid 12/05/20 12/05/20 12/05/20 08:08 11:24 16:44 WBC RBC Hgb Hct MCV MCH MCHC RDW Plt Count Lymph % (Auto) [place] % (Auto) Eos % (Auto) Baso % (Auto) Lymph # (Auto) [place] # (Auto) Eos # (Auto) Baso # (Auto) Seg Neutrophils % Seg Neutrophils # POC Glucose 85 106 H 98 Uric Acid 12/05/20 12/06/20 21:21 07:16 WBC RBC Hgb Hct MCV MCH MCHC RDW Plt Count Lymph % (Auto) [place] % (Auto) Eos % (Auto) Baso % (Auto) Lymph # (Auto) [place] # (Auto) Eos # (Auto) Baso # (Auto) Seg Neutrophils % Seg Neutrophils # POC Glucose 99 103 Uric Acid Assessment and Plan CVA: Continue Secondary Stroke Prevention (Antithrombotic, Statin (Goal LDL-C <70), BP control (Goal <140/90), GLU control (Goal A1c <7), and lifestyle modification). Monitor for recurrent stroke or post-stroke recrudescence. Dual antiplatelet therapy for 21 days followed by aspirin alone. Statin okay to continue at lower dose as lipids are at goal. Continue neuromotor therapy as above. Family training when available. Monitor for post stroke depression, cognitive deficits, seizure, dysphagia, aphasia, shoulder hand syndrome, sensory deficits, spasticity, bowel/bladder deficits, sleep disturbance, vision deficits and DVT. Prognosis for recovery and Secondary Stroke Prevention discussed. Follow up with Neurology. No driving until cleared by Neurologist. MRI showed an acute/subacute 9 mm left leopoldo lacunar infarct. 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 Resting hand splint for right upper extremity use tolerated well Hypertension: Continue medication. Monitor blood pressure. Adjust medications as needed for normotension. Hold for hypotension. Goal SBP <140 Diabetes: Continue carb controlled diet. Monitor glucose on a regular level with target of euglycemia. Patient's most recent A1c is 6.0. Patient previously diet controlled. We will continue sliding scale and monitor for need to start any other medications. BPH: Continue Flomax, monitor for any signs of bladder dysfunction or inco ntinence. 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 Monitor for resolution over the coming days and escalate medication as needed. Dysarthria: Continue speech therapy to improve patient's ability to enunciate and make himself clearly understood. Aphasia: Continue speech therapy to improve patient's ability to communicate. At this point does not appear the patient will need alternative means of communication and hopefully this will clear over the coming days. Dysphagia: Continue modified diet. Speech therapy on board to monitor and upgrade diet as able once patient is able to swallow safely. MBS as needed. Monitor for safety and aspiration precautions in place. ADL dysfunction: OT will work on improving ability to perform ADLs (including assistive devices) to increase independence and decrease caregiver burden and improve functional transfers and mobility training. Difficulty walking: PT will work on gait training and proper use of assistive devices and advance as appropriate to use of stairs and outside ambulation on uneven surfaces. Unsteadiness on feet: PT will work on improving static and dynamic sitting and standing balance as well as proper use of assistive devices to decrease risk of falls. Abnormality of gait: PT will work to improve safety and efficiency of gait through neuromotor training and gait training along with instruction on proper use of assistive devices. Muscle weakness: PT & OT will work on strengthening exercises to improve fun ctional strength including mixture of closed and open kinetic chain exercises. Debility: PT & OT will work on improving overall functional status to improve participation with ADLs, mobility and social involvement. Fatigue: PT & OT will work on improving endurance through aerobic exercises and therapeutic activity while monitoring patients tolerance for activity and vital signs as needed. DVT ppx: Heparin twice daily Pain: Continue physical modalities in therapy and pain medications as needed to achieve functional pain control. Sleep: Monitor and address as needed. Bowel: Monitor and address as needed. Appetite: Monitor and address as needed. Discharge planning: Pending therapy progress and care plan meeting. Will continue discussion with therapy team, SW, patient and family. Restrictions/ Precautions: Falls, aspiration WB status: FWB Functional Hx: ADLs: Independent Cognition: Independent Mobility: No AD Barriers to Discharge: Decreased mobility and ability to perform self care, balance deficits, weakness Estimated Length of Stay: 1014 days Discharge Destination: Home with family
[2020-12-06] MEDS: LISINOPRIL 40 MG TAB PO SCH (10:36)
[2020-12-06] MEDS: amLODIPine 10 MG TAB PO SCH (10:37)
[2020-12-06] MEDS: ASPIRIN EC 81 MG TAB PO SCH (10:37)
[2020-12-06] MEDS: TAMSULOSIN 0.4 MG CAP PO SCH (10:37)
[2020-12-06] MEDS: metFORMIN 500 MG TAB PO SCH ×2 (10:37→16:12)
[2020-12-06] MEDS: CLOPIDOGREL 75 MG TAB PO SCH (10:37)
[2020-12-06] MEDS: HEPARIN 5,000 UNIT/1 ML VIAL SUB-Q SCH ×2 (10:38→22:43)
[2020-12-06] MEDS: INSULIN LISPRO 100 UNIT/ML SUB-Q SCH ×4 (10:38→22:44)
[2020-12-06] MEDS: BRIMONIDINE 0.15% OPHTH SOLN OU SCH (10:39)
[2020-12-07] MEDS: hydrALAZINE 25 MG TAB PO SCH ×3 (06:07→21:57)
[2020-12-07] MEDS: LISINOPRIL 40 MG TAB PO SCH (08:26)
[2020-12-07] MEDS: ASPIRIN EC 81 MG TAB PO SCH (08:26)
[2020-12-07] MEDS: CLOPIDOGREL 75 MG TAB PO SCH (08:26)
[2020-12-07] MEDS: TAMSULOSIN 0.4 MG CAP PO SCH (08:26)
[2020-12-07] MEDS: HEPARIN 5,000 UNIT/1 ML VIAL SUB-Q SCH ×3 (08:26→21:56)
[2020-12-07] MEDS: amLODIPine 10 MG TAB PO SCH (08:26)
[2020-12-07] MEDS: metFORMIN 500 MG TAB PO SCH ×2 (08:26→17:40)
[2020-12-07] MEDS: BRIMONIDINE 0.15% OPHTH SOLN OU SCH ×2 (08:27→13:07)
[2020-12-07] MEDS: INSULIN LISPRO 100 UNIT/ML SUB-Q SCH ×3 (08:27→16:30)
--- NOTE | 2020-12-07 09:50 | Progress Note ---
Subjective Date of service: 12/07/20 Principal diagnosis: CVA Interval history: 75-year-old male brought to the hospital with difficulty speaking and gait/balance issues. Symptoms started previous day on a flight from [place] to [place] with a layover in [place] at which point he could not walk. Because of this he was outside the window for TPA and had a low stroke score. Clinical picture was not consistent with large vessel occlusion. A1c at the outside hospital was 6.0. 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 Patient had mild aphasia. He was started on a modified diet for dysphagia. He was started on IV antihypertensives for hypertensive emergency. Neurology recommends dual antiplatelet therapy for 3 weeks followed by aspirin only regimen. MRI brain performed on 11/28 showed an acute to subacute 9 mm lacunar infarct in the left leopoldo. Interval History: Patient is participating in therapy and making reasonable progress. Taking rest breaks as needed. +BM. Denies pain, palpitations, dyspnea, cough, N/V, or joint pain. CVA: Continue secondary stroke prevention. No signs of worsening neurologic function, shoulder-hand syndrome or spasticity. Continue therapy to improve function. Resting hand splint for right upper extremity to improve function, increase stretching during time out of therapy and reduce risk of contracture. Patient will need AFO for right foot drop Right foot drop: Patient currently ambulating utilizing railing on the wall and a right AFO. Will need to order AFO from [facility] prior to discharge. Hypertension: Patient mostly at goal with blood pressure. A little elevated over the last 2 checks this morning. Continue to monitor and modify dose to keep patient less than 140/90. May need to increase or add medications if blood pressure does not improve and if this seems to be a trend Diabetes: Fairly well controlled so far. Continue carb controlled diet and medications and adjust for euglycemia. Dysarthria: Continue speech therapy to improve patient's ability to enunciate more clearly. Patient somewhat understandable Aphasia: Continue speech therapy to improve patient's ability to communicate and make his needs known. Dysphagia: Continue modified diet and speech therapy. MBS as needed. Advance as able ? Central pain syndrome? Allodynia of right great toe: Seems resolved. Will continue to monitor for any further signs or symptoms. All records, vitals, labs and medications were reviewed. No other issues per patient, nursing or therapy. Patient discussed during team conference today. Making fair progress. Will need an AFO at time of discharge. Further DME to be determined as we get c loser. At this point, decision was made to discharge on 12/16 however patient may need additional time depending on his ability to ambulate. We will continue to monitor and assess for further need. Objective - Exam Narrative Exam: MUSCULOSKELETAL SPECIALTY EXAM CONSTITUTIONAL: Well developed, well nourished, appropriately groomed. RIGHT hand dominant. RESPIRATORY: Clear to auscultation bilaterally, no increased work of breathing CARDIOVASCULAR: Regular Rate/ Rhythm, no swelling, edema or tenderness in BUE or BLE. Pulses palpable in all extremities. All extremities warm. GI: + bowel sounds, soft, NTTP, nondistended. INTEGUMENTARY: Normal, no lesion, rash, masses or bruising noted in extremities. MUSCULOSKELETAL: Right great toe over the first metatarsal area not tender to palpation today. BUE and BLE normal without defect, crepitus, subluxation, effusion, arthritic changes or TTP. Resting hand splint on right upper extremity. Right foot drop R 2 /5 L 4+ /5 ROM decreased on right, normal on left Tone normal NEURO: CN VII : Right facial droop CN VIII : Hearing intact to finger rustle with decreased hearing bilaterally CN XI : Head rotation intact, decreased right shoulder shrug CN XII : Tongue protrudes slightly right Sensation intact in all extremities without extinction. No tremor noted in 4 extremities. Follows 2 step commands. Aphasia present Dysarthria present Dysphagia present Neglect not appreciated POSTURE and GAIT: Sitting posture good. Balance and gait observed with therapy, patient walking utilizing rail on wall and right AFO. Balance seems okay, steps are short and choppy with weakened stance phase on RLE. PSYCH: Alert, oriented x3, affect appears euthymic. Insight appears intact. - Constitutional Vitals: Vital Signs - 12hr 12/06/20 12/07/20 12/07/20 22:43 06:07 07:12 Temperature 97.5 F L Pulse Rate 80 77 Respiratory 16 Rate Blood Pressure 133/79 158/89 145/81 O2 Sat by Pulse 96 Oximetry - Allied health notes Allied health notes reviewed: nursing, PT, ST, OT FIMS assessment as documented by PT/OT/ST: Locomotion- walk/wheelchair Ambulation Distance 1 - Labs CBC & Chem 7: 12/03/20 06:56 12/03/20 06:56 Labs: Laboratory Results - last 72 hr 12/04/20 12/04/20 12/04/20 11:29 16:22 21:37 POC Glucose 85 104 99 12/05/20 12/05/20 12/05/20 08:08 11:24 16:44 POC Glucose 85 106 H 98 12/05/20 12/06/20 12/06/20 21:21 07:16 11:03 POC Glucose 99 103 134 H 12/06/20 12/06/20 16:24 20:50 POC Glucose 151 H 120 H Assessment and Plan CVA: Continue Secondary Stroke Prevention (Antithrombotic, Statin (Goal LDL-C <70), BP control (Goal <140/90), GLU control (Goal A1c <7), and lifestyle modification). Monitor for recurrent stroke or post-stroke recrudescence. Dual antiplatelet therapy for 21 days followed by aspirin alone. Statin okay to continue at lower dose as lipids are at goal. Continue neuromotor therapy as above. Family training when available. Monitor for post stroke depression, cognitive deficits, seizure, dysphagia, aphasia, shoulder hand syndrome, sensory deficits, spasticity, bowel/bladder deficits, sleep disturbance, vision deficits and DVT. Prognosis for recovery and Secondary Stroke Prevention discussed. Follow up with Neurology. No driving until cleared by Neurologist. MRI showed an acute/subacute 9 mm left leopoldo lacunar infarct. History of multip le previous infarcts in the thalamic region. Resting hand splint for right upper extremity use tolerated well Hypertension: Continue medication. Monitor blood pressure. Adjust medications as needed for normotension. Hold for hypotension. Goal SBP <140 Diabetes: Continue carb controlled diet. Monitor glucose on a regular level with target of euglycemia. Patient's most recent A1c is 6.0. Patient previously diet controlled. We will continue sliding scale and monitor for need to start any other medications. Right foot drop: Patient will need an order for AFO prior to discharge. BPH: Continue Flomax, monitor for any signs of bladder dysfunction or incontinence. 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 Monitor for resolution over the coming days and utilize medication as needed. Dysarthria: Continue speech therapy to improve patient's ability to enunciate and make himself clearly understood. Aphasia: Continue speech therapy to improve patient's ability to communicate. At this point does not appear the patient will need alternative means of communication and hopefully this will clear over the coming days. Dysphagia: Continue modified diet. Speech therapy on board to monitor and upgrade diet as able once patient is able to swallow safely. MBS as needed. Monitor for safety and aspiration precautions in place. ADL dysfunction: OT will work on improving ability to perform ADLs (including assistive devices) to increase independence and decrease caregiver burden and improve functional transfers and mobility training. Difficulty walking: PT will work on gait training and proper use of assistive devices and advance as appropriate to use of stairs and outside ambulation on uneven surfaces. Unsteadiness on feet: PT will work on improving static and dynamic sitting and standing balance as well as proper use of assistive devices to decrease risk of falls. Abnormality of gait: PT will work to improve safety and efficiency of gait through neuromotor training and gait training along with instruction on proper use of assistive devices. Muscle weakness: PT & OT will work on strengthening exercises to improve functional strength including mixture of closed and open kinetic chain exercises. Debility: PT & OT will work on improving overall functional status to improve participation with ADLs, mobility and social involvement. Fatigue: PT & OT will work on improving endurance through aerobic exercises and therapeutic activity while monitoring patients tolerance for activity and vital signs as needed. DVT ppx: Heparin twice daily Pain: Continue physical modalities in therapy and pain medications as needed to achieve functional pain control. Sleep: Monitor and address as needed. Bowel: Monitor and address as needed. Appetite: Monitor and address as needed. Discharge planning: Pending therapy progress and care plan meeting. Will continue discussion with therapy team, SW, patient and family. Possibly disc harge on 12/16 with family. Restrictions/ Precautions: Falls, aspiration WB status: FWB Functional Hx: ADLs: Independent Cognition: Independent Mobility: No AD Barriers to Discharge: Decreased mobility and ability to perform self care, balance deficits, weakness Estimated Length of Stay: 1014 days Discharge Destination: Home with family
[2020-12-07 15:30] LABS: Hematocrit 45.5 % (35.5-45.6); Hemoglobin 15.2 gm/dl (11.8-15.2); Mean Corpuscular HGB Conc 33 % (32-34); Mean Corpuscular Volume 93 fl (84-94); Platelet Count 169 K/mm3 (140-440); Red Blood Count 4.89 M/mm3 (3.65-5.03); Red Cell Distribution Width 14.8 % (13.2-15.2)
[2020-12-07 15:31] LABS: BUN/Creatinine Ratio 17; Blood Urea Nitrogen 15 mg/dL (9-20); Calcium 9.6 mg/dL (8.4-10.2); Hemolysis Index 17
[2020-12-07] MEDS: POLYETHYLENE GLYCOL 3350 17 GM POWDER PO PRN (16:26)
[2020-12-08] MEDS: hydrALAZINE 25 MG TAB PO SCH ×3 (05:16→23:04)
--- NOTE | 2020-12-08 08:08 | Progress Note ---
Subjective Date of service: 12/08/20 Principal diagnosis: CVA Interval history: 75-year-old male brought to the hospital with difficulty speaking and gait/balance issues. Symptoms started previous day on a flight from [place] to [place] with a layover in [place] at which point he could not walk. Because of this he was outside the window for TPA and had a low stroke score. Clinical picture was not consistent with large vessel occlusion. A1c at the outside hospital was 6.0. 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 Patient had mild aphasia. He was started on a modified diet for dysphagia. He was started on IV antihypertensives for hypertensive emergency. Neurology recommends dual antiplatelet therapy for 3 weeks followed by aspirin only regimen. MRI brain performed on 11/28 showed an acute to subacute 9 mm lacunar infarct in the left leopoldo. Interval History: Patient is participating in therapy and making reasonable progress. Taking rest breaks as needed. +BM. Denies pain, palpitations, dyspnea, cough, N/V, or joint pain. CVA: Continue secondary stroke prevention. No signs of worsening neurologic function, shoulder-hand syndrome or spasticity. Continue therapy to improve function. Resting hand splint for right upper extremity to improve function, increase stretching during time out of therapy and reduce risk of contracture. Patient will need AFO for right foot drop Right foot drop: Patient currently ambulating utilizing railing on the wall and a right AFO. Will need to order AFO from [facility] prior to discharge, will consult orthotics. Hypertension: Patient mostly at goal with blood pressure, blood pressure improved. Continue to monitor and modify dose to keep patient less than 140/90. Diabetes: Well controlled so far. Continue carb controlled diet and medications and adjust for euglycemia. Dysarthria: Continue speech therapy to improve patient's ability to enunciate more clearly. Patient fairly understandable Aphasia: Continue speech therapy to improve patient's ability to communicate and make his needs known, improving Dysphagia: Continue modified diet and speech therapy. MBS as needed. Advance as able ? Central pain syndrome? Allodynia of right great toe: Seems resolved. Will continue to monitor for any further signs or symptoms. All records, vitals, labs and medications were reviewed. No other issues per patient, nursing or therapy. Objective - Exam Narrative Exam: MUSCULOSKELETAL SPECIALTY EXAM CONSTITUTIONAL: Well developed, well nourished, appropriately groomed. RIGHT hand dominant. RESPIRATORY: Clear to auscultation bilaterally, no increased work of breathing CARDIOVASCULAR: Regular Rate/ Rhythm, no swelling, edema or tenderness in BUE or BLE. Pulses palpable in all extremities. All extremities warm. GI: + bowel sounds, soft, NTTP, nondistended. INTEGUMENTARY: Normal, no lesion, rash, masses or bruising noted in extremities. MUSCULOSKELETAL: Right great toe over the first metatarsal area not tender to palpation today. BUE and BLE normal without defect, crepitus, subluxation, effusion, arthritic c hanges or TTP. Resting hand splint on right upper extremity. Right foot drop R 2 /5 L 4+ /5 ROM decreased on right, normal on left Tone normal NEURO: CN VII : Right facial droop CN VIII : Hearing intact to finger rustle with decreased hearing bilaterally CN XI : Head rotation intact, decreased right shoulder shrug CN XII : Tongue protrudes slightly right Sensation intact in all extremities without extinction. No tremor noted in 4 extremities. Follows 2 step commands. Aphasia present Dysarthria present Dysphagia present Neglect not appreciated POSTURE and GAIT: Sitting posture good. Balance and gait observed with therapy, patient walking utilizing rail on wall and right AFO. Balance seems okay, steps are short and choppy with weakened stance phase on RLE. PSYCH: Alert, oriented x3, affect appears euthymic. Insight appears intact. - Constitutional Vitals: Vital Signs - 12hr 12/07/20 12/07/20 12/08/20 21:57 22:00 04:14 Temperature 98.5 F Pulse Rate 86 93 H Respiratory 20 Rate Respiratory 17 Rate [Right Toe ] Blood Pressure 131/70 135/76 O2 Sat by Pulse 93 Oximetry 12/08/20 05:16 Temperature Pulse Rate 93 H Respiratory Rate Respiratory Rate [Right Toe ] Blood Pressure 135/75 O2 Sat by Pulse Oximetry - Allied health notes Allied health notes reviewed: nursing, PT, ST, OT FIMS assessment as documented by PT/OT/ST: Locomotion- walk/wheelchair Ambulation Distance 1 - Labs CBC & Chem 7: 12/07/20 14:25 12/07/20 14:25 Labs: Laboratory Results - last 72 hr 12/05/20 12/05/20 12/05/20 08:08 11:24 16:44 WBC RBC Hgb Hct MCV MCH MCHC RDW Plt Count Sodium Potassium Chloride Carbon Dioxide Anion Gap BUN Creatinine Estimated GFR BUN/Creatinine Ratio Glucose POC Glucose 85 106 H 98 Calcium 12/05/20 12/06/20 12/06/20 21:21 07:16 11:03 WBC RBC Hgb Hct MCV MCH MCHC RDW Plt Count Sodium Potassium Chloride Carbon Dioxide Anion Gap BUN Creatinine Estimated GFR BUN/Creatinine Ratio Glucose POC Glucose 99 103 134 H Calcium 12/06/20 12/06/20 12/07/20 16:24 20:50 07:18 WBC RBC Hgb Hct MCV MCH MCHC RDW Plt Count Sodium Potassium Chloride Carbon Dioxide Anion Gap BUN Creatinine Estimated GFR BUN/Creatinine Ratio Glucose POC Glucose 151 H 120 H 87 Calcium 12/07/20 12/07/20 12/07/20 11:48 14:25 14:25 WBC 8.6 RBC 4.89 Hgb 15.2 Hct 45.5 MCV 93 MCH 31 MCHC 33 RDW 14.8 Plt Count 169 Sodium 133 L Potassium 3.9 Chloride 98.4 Carbon Dioxide 24 Anion Gap 15 BUN 15 Creatinine 0.9 Estimated GFR > 60 BUN/Creatinine Ratio 17 Glucose 98 POC Glucose 107 H Calcium 9.6 12/07/20 12/07/20 16:11 22:19 WBC RBC Hgb Hct MCV MCH MCHC RDW Plt Count Sodium Potassium Chloride Carbon Dioxide Anion Gap BUN Creatinine Estimated GFR BUN/Creatinine Ratio Glucose POC Glucose 102 112 H Calcium Assessment and Plan CVA: Continue Secondary Stroke Prevention (Antithrombotic, Statin (Goal LDL-C <70), BP control (Goal <140/90), GLU control (Goal A1c <7), and lifestyle modification). Monitor for recurrent stroke or post-stroke recrudescence. Dual antiplatelet therapy for 21 days followed by aspirin alone. Statin okay to continue at lower dose as lipids are at goal. Continue neuromotor therapy as above. Family training when available. Monitor for post stroke depression, cognitive deficits, seizure, dysphagia, aphasia, shoulder hand syndrome, sensory deficits, spasticity, bowel/bladder deficits, sleep disturbance, vision deficits and DVT. Prognosis for recovery and Secondary Stroke Prevention discussed. Follow up with Neurology. No driving until cleared by Neurologist. MRI showed an acute/subacute 9 mm left leopoldo lacunar infarct. 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 Resting hand splint for right upper extremity use tolerated well Hypertension: Continue medication. Monitor blood pressure. Adjust medications as needed for normotension. Hold for hypotension. Goal SBP <140 Diabetes: Continue carb controlled diet. Monitor glucose on a regular level with target of euglycemia. Patient's most recent A1c is 6.0. Patient previou sly diet controlled. We will continue sliding scale and monitor for need to start any other medications. Right foot drop: Patient will need an order for AFO prior to discharge. BPH: Continue Flomax, monitor for any signs of bladder dysfunction or incontinence. 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 Monitor for resolution over the coming days and utilize medication as needed. Dysarthria: Continue speech therapy to improve patient's ability to enunciate and make himself clearly understood. Aphasia: Continue speech therapy to improve patient's ability to communicate. At this point does not appear the patient will need alternative means of communication and hopefully this will clear over the coming days. Dysphagia: Continue modified diet. Speech therapy on board to monitor and upgrade diet as able once patient is able to swallow safely. MBS as needed. Monitor for safety and aspiration precautions in place. ADL dysfunction: OT will work on improving ability to perform ADLs (including assistive devices) to increase independence and decrease caregiver burden and improve functional transfers and mobility training. Difficulty walking: PT will work on gait training and proper use of assistive devices and advance as appropriate to use of stairs and outside ambulation on uneven surfaces. Unsteadiness on feet: PT will work on improving static and dynamic sitting and standing balance as well as proper use of assistive devices to decrease risk of falls. Abnormality of gait: PT will work to improve safety and efficiency of gait through neuromotor training and gait training along with instruction on proper use of assistive devices. Muscle weakness: PT & OT will work on strengthening exercises to improve functional strength including mixture of closed and open kinetic chain exercises. Debility: PT & OT will work on improving overall functional status to improve participation with ADLs, mobility and social involvement. Fatigue: PT & OT will work on improving endurance through aerobic exercises and therapeutic activity while monitoring patients tolerance for activity and vital signs as needed. DVT ppx: Heparin twice daily Pain: Continue physical modalities in therapy and pain medications as needed to achieve functional pain control. Sleep: Monitor and address as needed. Bowel: Monitor and address as needed. Appetite: Monitor and address as needed. Discharge planning: Pending therapy progress and care plan meeting. Will continue discussion with therapy team, SW, patient and family. Possibly discharge on 12/16 with family. Restrictions/ Precautions: Falls, aspiration WB status: FWB Functional Hx: ADLs: Independent Cognition: Independent Mobility: No AD Barriers to Discharge: Decreased mobility and ability to perform self care, balance deficits, weakness Estimated Length of Stay: 1014 days Discharge Destination: Home with family
[2020-12-08] MEDS: INSULIN LISPRO 100 UNIT/ML SUB-Q SCH ×4 (08:37→23:10)
[2020-12-08] MEDS: metFORMIN 500 MG TAB PO SCH ×2 (08:56→17:10)
[2020-12-08] MEDS: LISINOPRIL 40 MG TAB PO SCH (08:56)
[2020-12-08] MEDS: ASPIRIN EC 81 MG TAB PO SCH (08:56)
[2020-12-08] MEDS: amLODIPine 10 MG TAB PO SCH (08:57)
[2020-12-08] MEDS: CLOPIDOGREL 75 MG TAB PO SCH (08:57)
[2020-12-08] MEDS: TAMSULOSIN 0.4 MG CAP PO SCH (08:57)
[2020-12-08] MEDS: BRIMONIDINE 0.15% OPHTH SOLN OU SCH (08:59)
[2020-12-08] MEDS: HEPARIN 5,000 UNIT/1 ML VIAL SUB-Q SCH ×2 (09:00→23:05)
[2020-12-08] MEDS: POLYETHYLENE GLYCOL 3350 17 GM POWDER PO PRN (23:15)
[2020-12-09] MEDS: hydrALAZINE 25 MG TAB PO SCH ×3 (05:22→21:09)
[2020-12-09] MEDS: INSULIN LISPRO 100 UNIT/ML SUB-Q SCH ×4 (07:45→21:20)
[2020-12-09] MEDS: HEPARIN 5,000 UNIT/1 ML VIAL SUB-Q SCH ×2 (08:24→21:09)
[2020-12-09] MEDS: TAMSULOSIN 0.4 MG CAP PO SCH (08:26)
[2020-12-09] MEDS: ASPIRIN EC 81 MG TAB PO SCH (08:26)
[2020-12-09] MEDS: CLOPIDOGREL 75 MG TAB PO SCH (08:26)
[2020-12-09] MEDS: metFORMIN 500 MG TAB PO SCH ×2 (08:26→16:55)
[2020-12-09] MEDS: LISINOPRIL 40 MG TAB PO SCH (08:27)
[2020-12-09] MEDS: amLODIPine 10 MG TAB PO SCH (08:27)
--- NOTE | 2020-12-09 09:14 | Progress Note ---
Subjective Date of service: 12/09/20 Principal diagnosis: CVA Interval history: 75-year-old male brought to the hospital with difficulty speaking and gait/balance issues. Symptoms started previous day on a flight from [place] to [place] with a layover in [place] at which point he could not walk. Because of this he was outside the window for TPA and had a low stroke score. Clinical picture was not consistent with large vessel occlusion. A1c at the outside hospital was 6.0. 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 Patient had mild aphasia. He was started on a modified diet for dysphagia. He was started on IV antihypertensives for hypertensive emergency. Neurology recommends dual antiplatelet therapy for 3 weeks followed by aspirin only regimen. MRI brain performed on 11/28 showed an acute to subacute 9 mm lacunar infarct in the left leopoldo. Interval History: Patient is participating in therapy and making reasonable progress. Taking rest breaks as needed. -BM. Denies pain, palpitations, dyspnea, cough, N/V, or joint pain. CVA: Continue secondary stroke prevention. No signs of worsening neurologic function, shoulder-hand syndrome or spasticity. Continue therapy to improve function. Resting hand splint for right upper extremity to improve function, increase stretching during time out of therapy and reduce risk of contracture. Patient will need AFO for right foot drop Right foot drop: Patient currently ambulating utilizing railing on the wall and a right AFO. Will need to order AFO from [facility] prior to discharge, will consult orthotics. Hypertension: Patient mostly at goal with blood pressure, however, did have a an elevated value last night at 170/90 at approximately 8:00 PM. As needed medication was not given, scheduled hydralazine was given later at approximately 11 PM. Patient is at max dose of amlodipine and lisinopril, will increase hydralazine and monitor. Continue to monitor and modify dose to keep patient less than 140/90. Diabetes: Well controlled so far. Continue carb controlled diet and medications and adjust for euglycemia. Dysarthria: Continue speech therapy to improve patient's ability to enunciate more clearly. Patient fairly understandable Aphasia: Continue speech therapy to improve patient's ability to communicate and make his needs known, improving Dysphagia: Continue modified diet and speech therapy. MBS as needed. Advance as able ? Central pain syndrome? Allodynia of right great toe: Seems resolved. Will continue to monitor for any further signs or symptoms. All records, vitals, labs and medications were reviewed. No other issues per patient, nursing or therapy. Objective - Exam Narrative Exam: MUSCULOSKELETAL SPECIALTY EXAM CONSTITUTIONAL: Well developed, well nourished, appropriately groomed. RIGHT hand dominant. RESPIRATORY: Clear to auscultation bilaterally, no increased work of breathing CARDIOVASCULAR: Regular Rate/ Rhythm, no swelling, edema or tenderness in BUE or BLE. Pulses palpable in all extremities. All extremities warm. GI: + bowel sounds, soft, NTTP, nondistended. INTEGUMENTARY: Normal, no lesion, rash, masses or bruising noted in extremities. MUSCULOSKELETAL: BUE and BLE normal without defect, crepitus, subluxation, effusion, arthritic changes or TTP. Resting hand splint on right upper extremity. Right foot drop R 2 /5 L 4+ /5 ROM decreased on right, normal on left Tone normal NEURO: CN VII : Right facial droop CN VIII : Hearing intact to finger rustle with decreased hearing bilaterally CN XI : Head rotation intact, decreased right shoulder shrug CN XII : Tongue protrudes slightly right Sensation intact in all extremities without extinction. No tremor noted in 4 extremities. Follows 2 step commands. Aphasia present Dysarthria present Dysphagia present Neglect not appreciated POSTURE and GAIT: Sitting posture good. Balance and gait observed with therapy, patient walking utilizing rail on wall and right AFO. Balance seems okay, steps are short and choppy with weakened stance phase on RLE. PSYCH: Alert, oriented x3, affect appears euthymic. Insight appears intact. - Constitutional Vitals: Vital Signs - 12hr 12/08/20 12/09/20 12/09/20 23:04 04:40 05:22 Temperature 98.8 F Pulse Rate 91 H 93 H 93 H Respiratory 19 Rate Blood Pressure 170/90 143/83 143/83 O2 Sat by Pulse 94 Oximetry 12/09/20 12/09/20 07:39 08:27 Temperature 98.8 F Pulse Rate 84 84 Respiratory 18 Rate Blood Pressure 141/78 141/75 O2 Sat by Pulse 96 Oximetry - Allied health notes Allied health notes reviewed: nursing, PT, ST, OT FIMS assessment as documented by PT/OT/ST: Locomotion- walk/wheelchair Ambulation Distance 1 - Labs CBC & Chem 7: 12/07/20 14:25 12/07/20 14:25 Labs: Laboratory Results - last 72 hr 12/06/20 12/06/20 12/06/20 11:03 16:24 20:50 WBC RBC Hgb Hct MCV MCH MCHC RDW Plt Count Sodium Potassium Chloride Carbon Dioxide Anion Gap BUN Creatinine Estimated GFR BUN/Creatinine Ratio Glucose POC Glucose 134 H 151 H 120 H Calcium 12/07/20 12/07/20 12/07/20 07:18 11:48 14:25 WBC 8.6 RBC 4.89 Hgb 15.2 Hct 45.5 MCV 93 MCH 31 MCHC 33 RDW 14.8 Plt Count 169 Sodium Potassium Chloride Carbon Dioxide Anion Gap BUN Creatinine Estimated GFR BUN/Creatinine Ratio Glucose POC Glucose 87 107 H Calcium 12/07/20 12/07/20 12/07/20 14:25 16:11 22:19 WBC RBC Hgb Hct MCV MCH MCHC RDW Plt Count Sodium 133 L Potassium 3.9 Chloride 98.4 Carbon Dioxide 24 Anion Gap 15 BUN 15 Creatinine 0.9 Estimated GFR > 60 BUN/Creatinine Ratio 17 Glucose 98 POC Glucose 102 112 H Calcium 9.6 12/08/20 12/08/20 12/08/20 07:50 11:22 16:09 WBC RBC Hgb Hct MCV MCH MCHC RDW Plt Count Sodium Potassium Chloride Carbon Dioxide Anion Gap BUN Creatinine Estimated GFR BUN/Creatinine Ratio Glucose POC Glucose 93 92 122 H Calcium 12/08/20 12/09/20 22:04 07:40 WBC RBC Hgb Hct MCV MCH MCHC RDW Plt Count Sodium Potassium Chloride Carbon Dioxide Anion Gap BUN Creatinine Estimated GFR BUN/Creatinine Ratio Glucose POC Glucose 98 104 Calcium Assessment and Plan CVA: Continue Secondary Stroke Prevention (Antithrombotic, Statin (Goal LDL-C <70), BP control (Goal <140/90), GLU control (Goal A1c <7), and lifestyle modification). Monitor for recurrent stroke or post-stroke recrudescence. Dual antiplatelet therapy for 21 days followed by aspirin alone. Statin okay to continue at lower dose as lipids are at goal. Continue neuromotor therapy as above. Family training when available. Monitor for post stroke depression, cognitive deficits, seizure, dysphagia, aphasia, shoulder hand syndrome, sensory deficits, spasticity, bowel/bladder deficits, sleep disturbance, vision deficits and DVT. Prognosis for recovery and Secondary Stroke Prevention discussed. Follow up with Neurology. No driving until cleared by Neurologist. MRI showed an acute/subacute 9 mm left leopoldo lacunar infarct. 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 Resting hand splint for right upper extremity use tolerated well Hypertension: Continue medication. Monitor blood pressure. Adjust medications as needed for normotension. Increase hydralazine on 12/09. Hold for hypotension . Goal SBP <140 Diabetes: Continue carb controlled diet. Monitor glucose on a regular level with target of euglycemia. Patient's most recent A1c is 6.0. Patient previously diet controlled. We will continue sliding scale and monitor for need to start any other medications. Right foot drop: Patient will need an order for AFO prior to discharge. BPH: Continue Flomax, monitor for any signs of bladder dysfunction or incontinence. 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 Monitor for resolution over the coming days and utilize medication as needed. Dysarthria: Continue speech therapy to improve patient's ability to enunciate and make himself clearly understood. Aphasia: Continue speech therapy to improve patient's ability to communicate. At this point does not appear the patient will need alternative means of communication and hopefully this will clear over the coming days. Dysphagia: Continue modified diet. Speech therapy on board to monitor and upgrade diet as able once patient is able to swallow safely. MBS as needed. Monitor for safety and aspiration precautions in place. ADL dysfunction: OT will work on improving ability to perform ADLs (including assistive devices) to increase independence and decrease caregiver burden and improve functional transfers and mobility training. Difficulty walking: PT will work on gait training and proper use of assistive devices and advance as appropriate to use of stairs and outside ambulation on uneven surfaces. Unsteadiness on feet: PT will work on improving static and dynamic sitting and standing balance as well as proper use of assistive devices to decrease risk of falls. Abnormality of gait: PT will work to improve safety and efficiency of gait through neuromotor training and gait training along with instruction on proper use of assistive devices. Muscle weakness: PT & OT will work on strengthening exercises to improve functional strength including mixture of closed and open kinetic chain exercises. Debility: PT & OT will work on improving overall functional status to improve participation with ADLs, mobility and social involvement. Fatigue: PT & OT will work on improving endurance through aerobic exercises and therapeutic activity while monitoring patients tolerance for activity and vital signs as needed. DVT ppx: Heparin twice daily Pain: Continue physical modalities in therapy and pain medications as needed to achieve functional pain control. Sleep: Monitor and address as needed. Bowel: Monitor and address as needed. Appetite: Monitor and address as needed. Discharge planning: Pending therapy progress and care plan meeting. Will continue discussion with therapy team, SW, patient and family. Possibly discharge on 12/16 with family. Restrictions/ Precautions: Falls, aspiration WB status: FWB Functional Hx: ADLs: Independent Cognition: Independent Mobility: No AD Barriers to Discharge: Decreased mobility and ability to perform self care, b alance deficits, weakness Estimated Length of Stay: 1014 days Discharge Destination: Home with family
[2020-12-09] MEDS: BRIMONIDINE 0.15% OPHTH SOLN OU SCH (10:10)
[2020-12-10] MEDS: hydrALAZINE 25 MG TAB PO SCH ×3 (05:30→22:00)
--- NOTE | 2020-12-10 08:21 | Progress Note ---
Subjective Date of service: 12/10/20 Principal diagnosis: CVA Interval history: 75-year-old male brought to the hospital with difficulty speaking and gait/balance issues. Symptoms started previous day on a flight from [place] to [place] with a layover in [place] at which point he could not walk. Because of this he was outside the window for TPA and had a low stroke score. Clinical picture was not consistent with large vessel occlusion. A1c at the outside hospital was 6.0. 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 Patient had mild aphasia. He was started on a modified diet for dysphagia. He was started on IV antihypertensives for hypertensive emergency. Neurology recommends dual antiplatelet therapy for 3 weeks followed by aspirin only regimen. MRI brain performed on 11/28 showed an acute to subacute 9 mm lacunar infarct in the left leopoldo. Interval History: Patient is participating in therapy and making reasonable progress. Taking rest breaks as needed. -BM. Denies pain, palpitations, dyspnea, cough, N/V, or joint pain. In discussing the patient's progress with physical therapy, we may need to continue working with the patient versus discharging next week as discussed in team conference. He is making good progress over the last couple of days and would benefit from continued therapy to minimize his dependence on others and improve his safety and overall function. CVA: Continue secondary stroke prevention. No signs of worsening neurologic function, shoulder-hand syndrome or spasticity. Continue therapy to improve function. Resting hand splint for right upper extremity to improve function, increase stretching during time out of therapy and reduce risk of contracture. Patient will need AFO for right foot drop Right foot drop: Patient currently ambulating utilizing railing on the wall and a right AFO. Will need to order AFO (posterior) from [facility] prior to discharge, will consult orthotics. Hypertension: Patient mostly at goal with blood pressure. Patient is at max dose of amlodipine and lisinopril, increased hydralazine and monitor. Continue to monitor and modify dose to keep patient less than 140/90. Diabetes: Well controlled so far. Continue carb controlled diet and medications and adjust for euglycemia. Dysarthria: Continue speech therapy to improve patient's ability to enunciate more clearly. Patient fairly understandable Aphasia: Continue speech therapy to improve patient's ability to communicate and make his needs known, improving Dysphagia: Continue modified diet and speech therapy. MBS as needed. Advance as able ? Central pain syndrome? Allodynia of right great toe: Seems resolved. Will co ntinue to monitor for any further signs or symptoms. All records, vitals, labs and medications were reviewed. No other issues per patient, nursing or therapy. Objective - Exam Narrative Exam: MUSCULOSKELETAL SPECIALTY EXAM CONSTITUTIONAL: Well developed, well nourished, appropriately groomed. RIGHT hand dominant. RESPIRATORY: Clear to auscultation bilaterally, no increased work of breathing CARDIOVASCULAR: Regular Rate/ Rhythm, no swelling, edema or tenderness in BUE or BLE. Pulses palpable in all extremities. All extremities warm. GI: + bowel sounds, soft, NTTP, nondistended. INTEGUMENTARY: Normal, no lesion, rash, masses or bruising noted in extremities. MUSCULOSKELETAL: BUE and BLE normal without defect, crepitus, subluxation, effusion, arthritic changes or TTP. Resting hand splint on right upper extremity. Right foot drop R 2 /5 L 4+ /5 ROM decreased on right, normal on left Tone normal NEURO: CN VII : Right facial droop CN VIII : Hearing intact to finger rustle with decreased hearing bilaterally CN XI : Head rotation intact, decreased right shoulder shrug CN XII : Tongue protrudes slightly right Sensation intact in all extremities without extinction. No tremor noted in 4 extremities. Follows 2 step commands. Aphasia present Dysarthria present Dysphagia present Neglect not appreciated POSTURE and GAIT: Sitting posture good. Balance and gait observed with therapy, patient walking hemiwalker and right AFO. Balance seems okay, steps are short and choppy with weakened stance phase on RLE. PSYCH: Alert, oriented x3, affect appears euthymic. Insight appears intact. - Constitutional Vitals: Vital Signs - 12hr 12/10/20 12/10/20 05:09 06:49 Temperature 98.9 F 97.0 F L Pulse Rate 76 67 Respiratory 18 18 Rate Blood Pressure 128/71 Blood Pressure 120/62 [Left] O2 Sat by Pulse 96 95 Oximetry - Allied health notes Allied health notes reviewed: nursing, PT, ST, OT FIMS assessment as documented by PT/OT/ST: Locomotion- walk/wheelchair Ambulation Distance 1 - Labs CBC & Chem 7: 12/07/20 14:25 12/07/20 14:25 Labs: Laboratory Results - last 72 hr 12/07/20 12/07/20 12/07/20 07:18 11:48 14:25 WBC 8.6 RBC 4.89 Hgb 15.2 Hct 45.5 MCV 93 MCH 31 MCHC 33 RDW 14.8 Plt Count 169 Sodium Potassium Chloride Carbon Dioxide Anion Gap BUN Creatinine Estimated GFR BUN/Creatinine Ratio Glucose POC Glucose 87 107 H Calcium 12/07/20 12/07/20 12/07/20 14:25 16:11 22:19 WBC RBC Hgb Hct MCV MCH MCHC RDW Plt Count Sodium 133 L Potassium 3.9 Chloride 98.4 Carbon Dioxide 24 Anion Gap 15 BUN 15 Creatinine 0.9 Estimated GFR > 60 BUN/Creatinine Ratio 17 Glucose 98 POC Glucose 102 112 H Calcium 9.6 12/08/20 12/08/20 12/08/20 07:50 11:22 16:09 WBC RBC Hgb Hct MCV MCH MCHC RDW Plt Count Sodium Potassium Chloride Carbon Dioxide Anion Gap BUN Creatinine Estimated GFR BUN/Creatinine Ratio Glucose POC Glucose 93 92 122 H Calcium 12/08/20 12/09/20 12/09/20 22:04 07:40 11:20 WBC RBC Hgb Hct MCV MCH MCHC RDW Plt Count Sodium Potassium Chloride Carbon Dioxide Anion Gap BUN Creatinine Estimated GFR BUN/Creatinine Ratio Glucose POC Glucose 98 104 91 Calcium 12/09/20 12/09/20 12/10/20 15:50 20:38 07:53 WBC RBC Hgb Hct MCV MCH MCHC RDW Plt Count Sodium Potassium Chloride Carbon Dioxide Anion Gap BUN Creatinine Estimated GFR BUN/Creatinine Ratio Glucose POC Glucose 126 H 108 H 78 Calcium Assessment and Plan CVA: Continue Secondary Stroke Prevention (Antithrombotic, Statin (Goal LDL-C <70), BP control (Goal <140/90), GLU control (Goal A1c <7), and lifestyle modification). Monitor for recurrent stroke or post-stroke recrudescence. Dual antiplatelet therapy for 21 days followed by aspirin alone. Statin okay to continue at lower dose as lipids are at goal. Continue neuromotor therapy as above. Family training when available. Monitor for post stroke depression, cognitive deficits, seizure, dysphagia, aphasia, shoulder hand syndrome, sensory deficits, spasticity, bowel/bladder deficits, sleep disturbance, vision deficits and DVT. Prognosis for recovery and Secondary Stroke Prevention discussed. Follow up with Neurology. No driving until cleared by Neurologist. MRI showed an acute/subacute 9 mm left leopoldo lacunar infarct. 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 Resting hand splint for right upper extremity use tolerated well Hypertension: Continue medication. Monitor blood pressure. Adjust medications as needed for normotension. Increase hydralazine on 12/09. Hold for hypotension. Goal SBP <140 Diabetes: Continue carb controlled diet. Monitor glucose on a regular level with target of euglycemia. Patient's most recent A1c is 6.0. Patient pr eviously diet controlled. We will continue sliding scale and monitor for need to start any other medications. Right foot drop: Patient will need an order for AFO prior to discharge. BPH: Continue Flomax, monitor for any signs of bladder dysfunction or incontinence. 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 Monitor for resolution over the coming days and utilize medication as needed. Dysarthria: Continue speech therapy to improve patient's ability to enunciate and make himself clearly understood. Aphasia: Continue speech therapy to improve patient's ability to communicate. At this point does not appear the patient will need alternative means of com munication and hopefully this will clear over the coming days. Dysphagia: Continue modified diet. Speech therapy on board to monitor and upgrade diet as able once patient is able to swallow safely. MBS as needed. Monitor for safety and aspiration precautions in place. ADL dysfunction: OT will work on improving ability to perform ADLs (including assistive devices) to increase independence and decrease caregiver burden and improve functional transfers and mobility training. Difficulty walking: PT will work on gait training and proper use of assistive devices and advance as appropriate to use of stairs and outside ambulation on uneven surfaces. Unsteadiness on feet: PT will work on improving static and dynamic sitting and standing balance as well as proper use of assistive devices to decrease risk of falls. Abnormality of gait: PT will work to improve safety and efficiency of gait t hrough neuromotor training and gait training along with instruction on proper use of assistive devices. Muscle weakness: PT & OT will work on strengthening exercises to improve functional strength including mixture of closed and open kinetic chain exercises. Debility: PT & OT will work on improving overall functional status to improve participation with ADLs, mobility and social involvement. Fatigue: PT & OT will work on improving endurance through aerobic exercises and therapeutic activity while monitoring patients tolerance for activity and vital signs as needed. DVT ppx: Heparin twice daily Pain: Continue physical modalities in therapy and pain medications as needed to achieve functional pain control. Sleep: Monitor and address as needed. Bowel: Monitor and address as needed. Appetite: Monitor and address as needed. Discharge planning: Pending therapy progress and care plan meeting. Will continue discussion with therapy team, SW, patient and family. I extend the patient's time in order to improve function, decrease dependence on others, improve safety with discharge home. Restrictions/ Precautions: Falls, aspiration WB status: FWB Functional Hx: ADLs: Independent Cognition: Independent Mobility: No AD Barriers to Discharge: Decreased mobility and ability to perform self care, balance deficits, weakness Estimated Length of Stay: 1014 days Discharge Destination: Home with family
[2020-12-10] MEDS: amLODIPine 10 MG TAB PO SCH (08:23)
[2020-12-10] MEDS: ASPIRIN EC 81 MG TAB PO SCH (08:23)
[2020-12-10] MEDS: LISINOPRIL 40 MG TAB PO SCH (08:23)
[2020-12-10] MEDS: HEPARIN 5,000 UNIT/1 ML VIAL SUB-Q SCH ×3 (08:24→21:59)
[2020-12-10] MEDS: metFORMIN 500 MG TAB PO SCH ×2 (08:24→17:17)
[2020-12-10] MEDS: TAMSULOSIN 0.4 MG CAP PO SCH (08:24)
[2020-12-10] MEDS: CLOPIDOGREL 75 MG TAB PO SCH (08:24)
[2020-12-10] MEDS: INSULIN LISPRO 100 UNIT/ML SUB-Q SCH ×3 (08:24→17:06)
[2020-12-10] MEDS: BRIMONIDINE 0.15% OPHTH SOLN OU SCH ×2 (08:25→10:47)
[2020-12-11] MEDS: INSULIN LISPRO 100 UNIT/ML SUB-Q SCH ×5 (04:50→22:35)
[2020-12-11] MEDS: hydrALAZINE 25 MG TAB PO SCH ×4 (05:06→22:47)
[2020-12-11] MEDS: CLOPIDOGREL 75 MG TAB PO SCH (08:26)
[2020-12-11] MEDS: metFORMIN 500 MG TAB PO SCH ×2 (08:26→17:02)
[2020-12-11] MEDS: amLODIPine 10 MG TAB PO SCH (08:26)
[2020-12-11] MEDS: ASPIRIN EC 81 MG TAB PO SCH (08:26)
[2020-12-11] MEDS: TAMSULOSIN 0.4 MG CAP PO SCH (08:26)
[2020-12-11] MEDS: LISINOPRIL 40 MG TAB PO SCH (08:26)
[2020-12-11] MEDS: HEPARIN 5,000 UNIT/1 ML VIAL SUB-Q SCH ×3 (08:26→22:00)
[2020-12-11] MEDS: BRIMONIDINE 0.15% OPHTH SOLN OU SCH ×2 (08:31→10:31)
--- NOTE | 2020-12-11 14:42 | Progress Note ---
Subjective Date of service: 12/11/20 Principal diagnosis: CVA Interval history: 75-year-old male brought to the hospital with difficulty speaking and gait/balance issues. Symptoms started previous day on a flight from [place] to [place] with a layover in [place] at which point he could not walk. Because of this he was outside the window for TPA and had a low stroke score. Clinical picture was not consistent with large vessel occlusion. A1c at the outside hospital was 6.0. 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 Patient had mild aphasia. He was started on a modified diet for dysphagia. He was started on IV antihypertensives for hypertensive emergency. Neurology recommends dual antiplatelet therapy for 3 weeks followed by aspirin only regimen. MRI brain performed on 11/28 showed an acute to subacute 9 mm lacunar infarct in the left leopoldo. Interval History: Patient is participating in therapy and making reasonable progress. Taking rest breaks as needed. -BM. Denies pain, palpitations, dyspnea, cough, N/V, or joint pain. Patient experiencing subjective dyspnea. Not seen necessarily on vitals but could possibly be atelectasis based on history. Patient also states that at times he is having apneic episodes while sleeping and is in the room and confirms this. Discussed with them at length that he should have a follow-up with upholstery sewer or other sleep study performed and if he is indeed having symptoms consistent with sleep apnea should consider utilizing a CPAP after his sleep study. Discussed the effects of sleep apnea on hypertension and other medical conditions. CVA: Continue secondary stroke prevention. No signs of worsening neurologic function, shoulder-hand syndrome or spasticity. Continue therapy to improve function. Resting hand splint for right upper extremity to improve function, increase stretching during time out of therapy and reduce risk of contracture. Patient will need AFO for right foot drop Right foot drop: Patient currently ambulating utilizing railing on the wall and a right AFO. Will need to order AFO (posterior) from [facility] [employer] [facility] prior to discharge, will consult orthotics. Dyspnea: Check a chest x-ray to rule out possible pneumonia or atelectasis. Monitor for improvement Hypertension: Patient mostly at goal with blood pressure. Patient is at max dose of amlodipine and lisinopril, increased hydralazine and monitor. Patient is having some variable blood pressure values, hydralazine has been held several times. Based on what I am seeing, will reduce dose back to 25 mg and monitor for improvement. Uncertain if the variability is due to the medication being held. Continue to monitor and modify dose to keep patient less than 140/90. Diabetes: Well controlled so far. Continue carb controlled diet and medications and adjust for euglycemia. Dysarthria: Continue speech therapy to improve patient's ability to enunciate more clearly. Patient fairly understandable Aphasia: Continue speech therapy to improve patient's ability to communicate and make his needs known, improving Dysphagia: Continue modified diet and speech therapy. MBS as needed. Advance as able ? Central pain syndrome? Allodynia of right great toe: Seems resolved. Will continue to monitor for any further signs or symptoms. All records, vitals, labs and medications were reviewed. No other issues per patient, nursing or therapy. Objective - Exam Narrative Exam: MUSCULOSKELETAL SPECIALTY EXAM CONSTITUTIONAL: Well developed, well nourished, appropriately groomed. RIGHT hand dominant. RESPIRATORY: Clear to auscultation bilaterally, no increased work of breathing CARDIOVASCULAR: Regular Rate/ Rhythm, no swelling, edema or tenderness in BUE or BLE. Pulses palpable in all extremities. All extremities warm. GI: + bowel sounds, soft, NTTP, nondistended. INTEGUMENTARY: Normal, no lesion, rash, masses or bruising noted in extremities. MUSCULOSKELETAL: BUE and BLE normal without defect, crepitus, subluxation, effusion, arthritic changes or TTP. Resting hand splint on right upper extremity. Right foot drop R 2 /5 L 4+ /5 ROM decreased on right, normal on left Tone normal NEURO: CN VII : Right facial droop CN VIII : Hearing intact to finger rustle with decreased hearing bilaterally CN XI : Head rotation intact, decreased right shoulder shrug CN XII : Tongue protrudes slightly right Sensation intact in all extremities without extinction. No tremor noted in 4 extremities. Follows 2 step commands. Aphasia present Dysarthria present Dysphagia present Neglect not appreciated POSTURE and GAIT: Sitting posture good. Balance and gait observed with therapy, patient walking hemiwalker and right AFO. Balance seems okay, steps are short and choppy with weakened stance phase on RLE. PSYCH: Alert, oriented x3, affect appears euthymic. Insight appears intact. - Constitutional Vitals: Vital Signs - 12hr 12/11/20 12/11/20 12/11/20 04:26 05:06 07:37 Temperature 98.7 F 97.9 F Pulse Rate 90 90 79 Respiratory 18 16 Rate Blood Pressure 125/79 125/79 153/87 Blood Pressure [Left] O2 Sat by Pulse 95 98 Oximetry 12/11/20 12:32 Temperature 97.4 F L Pulse Rate 82 Respiratory 16 Rate Blood Pressure Blood Pressure 106/63 [Left] O2 Sat by Pulse 100 Oximetry - Allied health notes Allied health notes reviewed: nursing, PT, ST, OT FIMS assessment as documented by PT/OT/ST: Locomotion- walk/wheelchair Ambulation Distance 1 - Labs CBC & Chem 7: 12/07/20 14:25 12/07/20 14:25 Labs: Laboratory Results - last 72 hr 12/08/20 12/08/20 12/09/20 16:09 22:04 07:40 POC Glucose 122 H 98 104 12/09/20 12/09/20 12/09/20 11:20 15:50 20:38 POC Glucose 91 126 H 108 H 12/10/20 12/10/20 12/10/20 07:53 11:36 16:04 POC Glucose 78 111 H 127 H 12/10/20 12/11/20 12/11/20 20:55 07:39 11:52 POC Glucose 121 H 88 96 Assessment and Plan CVA: Continue Secondary Stroke Prevention (Antithrombotic, Statin (Goal LDL-C <70), BP control (Goal <140/90), GLU control (Goal A1c <7), and lifestyle modification). Monitor for recurrent stroke or post-stroke recrudescence. Dual antiplatelet therapy for 21 days followed by aspirin alone. Statin okay to continue at lower dose as lipids are at goal. Continue neuromotor therapy as above. Family training when available. Monitor for post stroke depression, cognitive deficits, seizure, dysphagia, aphasia, shoulder hand syndrome, sensory deficits, spasticity, bowel/bladder deficits, sleep disturbance, vision deficits and DVT. Prognosis for recovery and Secondary Stroke Prevention discussed. Follow up with Neurology. No driving until cleared by Neurologist. MRI showed an acute/subacute 9 mm left leopoldo lacunar infarct. 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 Resting hand splint for right upper extremity use tolerated well Hypertension: Continue medication. Monitor blood pressure. Adjust medications as needed for normotension. Decrease hydralazine on 12/11. Hold for hypotension. Goal SBP <140 Diabetes: Continue carb controlled diet. Monitor glucose on a regular level with target of euglycemia. Patient's most recent A1c is 6.0. Patient previously diet controlled. We will continue sliding scale and monitor for need to start any other medications. Right foot drop: Patient will need an order for AFO prior to discharge. Dyspnea: Check a chest x-ray rule out pneumonia versus atelectasis. Monitor for improvement BPH: Continue Flomax, monitor for any signs of bladder dysfunction or incontinence. 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 Monitor for resolution over the coming days and utilize medication as needed. Dysarthria: Continue speech therapy to improve patient's ability to enunciate and make himself clearly understood. Aphasia: Continue speech therapy to improve patient's ability to communicate. At this point does not appear the patient will need alternative means of communication and hopefully this will clear over the coming days. Dysphagia: Continue modified diet. Speech therapy on board to monitor and upgrade diet as able once patient is able to swallow safely. MBS as needed. Monitor for safety and aspiration precautions in place. ADL dysfunction: OT will work on improving ability to perform ADLs (including assistive devices) to increase independence and decrease caregiver burden and improve functional transfers and mobility training. Difficulty walking: PT will work on gait training and proper use of assistive devices and advance as appropriate to use of stairs and outside ambulation on uneven surfaces. Unsteadiness on feet: PT will work on improving static and dynamic sitting and standing balance as well as proper use of assistive devices to decrease risk of falls. Abnormality of gait: PT will work to improve safety and efficiency of gait through neuromotor training and gait training along with instruction on proper use of assistive devices. Muscle weakness: PT & OT will work on strengthening exercises to improve functional strength including mixture of closed and open kinetic chain exercises. Debility: PT & OT will work on improving overall functional status to improve participation with ADLs, mobility and social involvement. Fatigue: PT & OT will work on improving endurance through aerobic exercises and therapeutic activity while monitoring patients tolerance for activity and vital signs as needed. DVT ppx: Heparin twice daily Pain: Continue physical modalities in therapy and pain medications as needed to achieve functional pain control. Sleep: Monitor and address as needed. Bowel: Monitor and address as needed. Appetite: Monitor and address as needed. Discharge planning: Pending therapy progress and care plan meeting. Will continue discussion with therapy team, SW, patient and family. I extend the patient's time in order to improve function, decrease dependence on others, improve safety with discharge home. Restrictions/ Precautions: Falls, aspiration WB status: FWB Functional Hx: ADLs: Independent Cognition: Independent Mobility: No AD Barriers to Discharge: Decreased mobility and ability to perform self care, balance deficits, weakness Estimated Length of Stay: 1014 days Discharge Destination: Home with family
--- NOTE | 2020-12-11 18:21 | XRay Report ---
CHEST 2 VIEWS INDICATION / CLINICAL INFORMATION: Dyspnea. COMPARISON: Chest x-ray 10/24/2016 FINDINGS: SUPPORT DEVICES: None. HEART / MEDIASTINUM: No significant abnormality. LUNGS / PLEURA: No significant pulmonary or pleural abnormality. No pneumothorax. ADDITIONAL FINDINGS: No significant additional findings. IMPRESSION: 1. No acute findings. Signer Name: Fran Conti MD Signed: 12/11/2020 6:17 PM Workstation Name: [id number]
[2020-12-12] MEDS: hydrALAZINE 25 MG TAB PO SCH ×3 (06:13→21:19)
[2020-12-12] MEDS: TAMSULOSIN 0.4 MG CAP PO SCH (08:33)
[2020-12-12] MEDS: ASPIRIN EC 81 MG TAB PO SCH (08:33)
[2020-12-12] MEDS: INSULIN LISPRO 100 UNIT/ML SUB-Q SCH ×4 (08:33→22:00)
[2020-12-12] MEDS: amLODIPine 10 MG TAB PO SCH (08:33)
[2020-12-12] MEDS: metFORMIN 500 MG TAB PO SCH ×2 (08:33→16:51)
[2020-12-12] MEDS: LISINOPRIL 40 MG TAB PO SCH (08:33)
[2020-12-12] MEDS: CLOPIDOGREL 75 MG TAB PO SCH (08:33)
[2020-12-12] MEDS: HEPARIN 5,000 UNIT/1 ML VIAL SUB-Q SCH ×2 (09:09→21:19)
[2020-12-12] MEDS: BRIMONIDINE 0.15% OPHTH SOLN OU SCH (11:02)
[2020-12-13] MEDS: hydrALAZINE 25 MG TAB PO SCH ×3 (06:04→21:13)
[2020-12-13] MEDS: TAMSULOSIN 0.4 MG CAP PO SCH (08:29)
[2020-12-13] MEDS: metFORMIN 500 MG TAB PO SCH ×2 (08:29→17:06)
[2020-12-13] MEDS: HEPARIN 5,000 UNIT/1 ML VIAL SUB-Q SCH ×3 (08:29→21:13)
[2020-12-13] MEDS: CLOPIDOGREL 75 MG TAB PO SCH (08:29)
[2020-12-13] MEDS: LISINOPRIL 40 MG TAB PO SCH (08:29)
[2020-12-13] MEDS: amLODIPine 10 MG TAB PO SCH (08:29)
[2020-12-13] MEDS: ASPIRIN EC 81 MG TAB PO SCH (08:29)
[2020-12-13] MEDS: INSULIN LISPRO 100 UNIT/ML SUB-Q SCH ×4 (08:30→21:50)
--- NOTE | 2020-12-13 09:43 | Progress Note ---
Subjective Date of service: 12/13/20 Principal diagnosis: CVA Interval history: 75-year-old male brought to the hospital with difficulty speaking and gait/balance issues. Symptoms started previous day on a flight from [place] to [place] with a layover in [place] at which point he could not walk. Because of this he was outside the window for TPA and had a low stroke score. Clinical picture was not consistent with large vessel occlusion. A1c at the outside hospital was 6.0. 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 Patient had mild aphasia. He was started on a modified diet for dysphagia. He was started on IV antihypertensives for hypertensive emergency. Neurology recommends dual antiplatelet therapy for 3 weeks followed by aspirin only regimen. MRI brain performed on 11/28 showed an acute to subacute 9 mm lacunar infarct in the left leopoldo. Interval History: Patient is participating in therapy and making reasonable progress. Taking rest breaks as needed. -BM. Denies pain, palpitations, dyspnea, cough, N/V, or joint pain. Chest x-ray reviewed, no signs of infiltrate or atelectasis. Patient states he does not have any subjective dyspnea today. Continue to monitor. CVA: Continue secondary stroke prevention. No signs of worsening neurologic function, shoulder-hand syndrome or spasticity. Continue therapy to improve function. Resting hand splint for right upper extremity to improve function, increase stretching during time out of therapy and reduce risk of contracture. Patient will need AFO for right foot drop Right foot drop: Patient currently ambulating utilizing railing on the wall and a right AFO. Will need to order AFO (posterior) from [facility] prior to discharge, will consult orthotics. Dyspnea: Chest x-ray reviewed and is negative for acute changes. Monitor for improvement Hypertension: Patient mostly at goal with blood pressure. Patient is at max dose of amlodipine and lisinopril, increased hydralazine and monitor. Continue to monitor blood pressure on reduced dose of hydralazine. Continue to monitor and modify dose to keep patient less than 140/90. Diabetes: Well controlled so far. Continue carb controlled diet and medications and adjust for euglycemia. Dysarthria: Continue speech therapy to improve patient's ability to enunciate more clearly. Patient fairly understandable Aphasia: Continue speech therapy to improve patient's ability to communicate and make his needs known, improving Dysphagia: Continue modified diet and speech therapy. MBS as needed. Advance as able ? Central pain syndrome? Allodynia of right great toe: Seems resolved. Will continue to monitor for any further signs or symptoms. All records, vitals, labs and medications were reviewed. No other issues per patient, nursing or therapy. Objective - Exam Narrative Exam: MUSCULOSKELETAL SPECIALTY EXAM CONSTITUTIONAL: Well developed, well nourished, appropriately groomed. RIGHT hand dominant. RESPIRATORY: Clear to auscultation bilaterally, no increased work of breathing CARDIOVASCULAR: Regular Rate/ Rhythm, no swelling, edema or tenderness in BUE or BLE. Pulses palpable in all extremities. All extremities warm. GI: + bowel sounds, soft, NTTP, nondistended. INTEGUMENTARY: Normal, no lesion, rash, masses or bruising noted in extremities. MUSCULOSKELETAL: BUE and BLE normal without defect, crepitus, subluxation, effusion, arthritic changes or TTP. Resting hand splint on right upper extremity. Right foot drop R 2 /5 L 4+ /5 ROM decreased on right, normal on left Tone normal NEURO: CN VII : Right facial droop CN VIII : Hearing intact to finger rustle with decreased hearing bilaterally CN XI : Head rotation intact, decreased right shoulder shrug CN XII : Tongue protrudes slightly right Sensation intact in all extremities without extinction. No tremor noted in 4 extremities. Follows 2 step commands. Aphasia present Dysarthria present Dysphagia present Neglect not appreciated POSTURE and GAIT: Sitting posture good. Balance and gait observed with therapy, patient walking hemiwalker and right AFO. Balance seems okay, gait improving. PSYCH: Alert, oriented x3, affect appears euthymic. Insight appears intact. - Constitutional Vitals: Vital Signs - 12hr 12/12/20 12/13/20 12/13/20 22:00 04:41 06:04 Temperature 98.3 F Pulse Rate 78 78 Respiratory 17 18 Rate Respiratory 17 Rate [Right Toe ] Blood Pressure 139/82 139/82 O2 Sat by Pulse 95 Oximetry 12/13/20 12/13/20 07:26 07:30 Temperature 98.2 F Pulse Rate 72 59 L Respiratory 18 Rate Respiratory Rate [Right Toe ] Blood Pressure 141/83 115/74 O2 Sat by Pulse 97 98 Oximetry - Allied health notes Allied health notes reviewed: nursing, PT, ST, OT FIMS assessment as documented by PT/OT/ST: Locomotion- walk/wheelchair Ambulation Distance 1 - Labs CBC & Chem 7: 12/07/20 14:25 12/07/20 14:25 Labs: Laboratory Results - last 72 hr 12/10/20 12/10/20 12/10/20 11:36 16:04 20:55 POC Glucose 111 H 127 H 121 H 12/11/20 12/11/20 12/11/20 07:39 11:52 16:12 POC Glucose 88 96 89 12/11/20 12/12/20 12/12/20 21:50 07:34 12:03 POC Glucose 90 95 79 12/12/20 12/12/20 12/13/20 16:22 21:20 07:27 POC Glucose 82 100 100 - Imaging and cardiology Chest x-ray: report reviewed, image reviewed Assessment and Plan CVA: Continue Secondary Stroke Prevention (Antithrombotic, Statin (Goal LDL-C <70), BP control (Goal <140/90), GLU control (Goal A1c <7), and lifestyle modification). Monitor for recurrent stroke or post-stroke recrudescence. Dual antiplatelet therapy for 21 days followed by aspirin alone. Statin okay to continue at lower dose as lipids are at goal. Continue neuromotor therapy as above. Family training when available. Monitor for post stroke depression, cognitive deficits, seizure, dysphagia, aphasia, shoulder hand syndrome, sensory deficits, spasticity, bowel/bladder deficits, sleep disturbance, vision deficits and DVT. Prognosis for recovery and Secondary Stroke Prevention discussed. Follow up with Neurology. No driving until cleared by Neurologist. MRI showed an acute/subacute 9 mm left leopoldo lacunar infarct. 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 Resting hand splint for right upper extremity use tolerated well Hypertension: Continue medication. Monitor blood pressure. Adjust medications as needed for normotension. Decrease hydralazine on 12/11. Hold for hypotension. Goal SBP <140 Diabetes: Continue carb controlled diet. Monitor glucose on a regular level with target of euglycemia. Patient's most recent A1c is 6.0. Patient pr eviously diet controlled. We will continue sliding scale and monitor for need to start any other medications. Right foot drop: Patient will need an order for AFO prior to discharge. Dyspnea: Chest x-ray negative for any acute changes. Seems improved. Continue to monitor for improvement BPH: Continue Flomax, monitor for any signs of bladder dysfunction or incontinence. 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 Monitor for resolution over the coming days and utilize medication as needed. Dysarthria: Continue speech therapy to improve patient's ability to enunciate and make himself clearly understood. Aphasia: Continue speech therapy to improve patient's ability to communicate. At this point does not appear the patient will need alternative means of communication and hopefully this will clear over the coming days. Dysphagia: Continue modified diet. Speech therapy on board to monitor and upgrade diet as able once patient is able to swallow safely. MBS as needed. Monitor for safety and aspiration precautions in place. ADL dysfunction: OT will work on improving ability to perform ADLs (including assistive devices) to increase independence and decrease caregiver burden and improve functional transfers and mobility training. Difficulty walking: PT will work on gait training and proper use of assistive devices and advance as appropriate to use of stairs and outside ambulation on uneven surfaces. Unsteadiness on feet: PT will work on improving static and dynamic sitting and standing balance as well as proper use of assistive devices to decrease risk of falls. Abnormality of gait: PT will work to improve safety and efficiency of gait through neuromotor training and gait training along with instruction on proper use of assistive devices. Muscle weakness: PT & OT will work on strengthening exercises to improve functional strength including mixture of closed and open kinetic chain exercises. Debility: PT & OT will work on improving overall functional status to improve participation with ADLs, mobility and social involvement. Fatigue: PT & OT will work on improving endurance through aerobic exercises and therapeutic activity while monitoring patients tolerance for activity and vital signs as needed. DVT ppx: Heparin twice daily Pain: Continue physical modalities in therapy and pain medications as needed to achieve functional pain control. Sleep: Monitor and address as needed. Bowel: Monitor and address as needed. Appetite: Monitor and address as needed. Discharge planning: Pending therapy progress and care plan meeting. Will continue discussion with therapy team, SW, patient and family. I extend the patient's time in order to improve function, decrease dependence on others, improve safety with discharge home. Restrictions/ Precautions: Falls, aspiration WB status: FWB Functional Hx: ADLs: Independent Cognition: Independent Mobility: No AD Barriers to Discharge: Decreased mobility and ability to perform self care, balance deficits, weakness Estimated Length of Stay: 1014 days Discharge Destination: Home with family
[2020-12-13] MEDS: BRIMONIDINE 0.15% OPHTH SOLN OU SCH (15:29)
[2020-12-13] MEDS: NAPROXEN 375 MG TAB PO PRN (21:25)
[2020-12-14] MEDS: hydrALAZINE 25 MG TAB PO SCH ×3 (05:40→23:46)
--- NOTE | 2020-12-14 07:32 | Progress Note ---
Subjective Date of service: 12/14/20 Principal diagnosis: CVA Interval history: 75-year-old male brought to the hospital with difficulty speaking and gait/balance issues. Symptoms started previous day on a flight from [place] to [place] with a layover in [place] at which point he could not walk. Because of this he was outside the window for TPA and had a low stroke score. Clinical picture was not consistent with large vessel occlusion. A1c at the outside hospital was 6.0. 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 Patient had mild aphasia. He was started on a modified diet for dysphagia. He was started on IV antihypertensives for hypertensive emergency. Neurology recommends dual antiplatelet therapy for 3 weeks followed by aspirin only regimen. MRI brain performed on 11/28 showed an acute to subacute 9 mm lacunar infarct in the left leopoldo. Interval History: Patient is participating in therapy and making reasonable progress. Taking rest breaks as needed. -BM. Denies pain, palpitations, dyspnea, cough, N/V, or joint pain. Continue to monitor. CVA: Continue secondary stroke prevention. No signs of worsening neurologic function, shoulder-hand syndrome or spasticity. Continue therapy to improve function. Resting hand splint for right upper extremity to improve function, increase stretching during time out of therapy and reduce risk of contracture. Patient will need AFO for right foot drop Right foot drop: Patient currently ambulating utilizing railing on the wall and a right AFO. Will need to order AFO (posterior) from [facility] prior to discharge, will consult orthotics. Dyspnea: Chest x-ray reviewed and is negative for acute changes. Monitor for improvement Hypertension: Patient mostly at goal with blood pressure. Patient is at max dose of amlodipine and lisinopril, increased hydralazine and monitor. Continue to monitor blood pressure on reduced dose of hydralazine. Continue to monitor and modify dose to keep patient less than 140/90. Diabetes: Well controlled so far. Continue carb controlled diet and medications and adjust for euglycemia. Dysarthria: Continue speech therapy to improve patient's ability to enunciate more clearly. Patient fairly understandable Aphasia: Continue speech therapy to improve patient's ability to communicate and make his needs known, improving Dysphagia: Continue modified diet and speech therapy. MBS as needed. Advance as able ? Central pain syndrome? Allodynia of right great toe: Slight issue with toe pain yesterday. Does not seem as bad as it was previously. Will continue to monitor for any further signs or symptoms. All records, vitals, labs and medications were reviewed. No other issues per patient, nursing or therapy. Patient discussed during team conference today. Making a little bit of progress with therapy and ambulating. We will look to discharge likely next Sunday on 12/22. Patient will need to go home with a hemiwalker, 3 and 1 and AFO currently. Over this next week we should build to improve his ability to ambulate reduce his loss of balance and improve his ADLs to reduce caregiver burden. Objective - Exam Narrative Exam: MUSCULOSKELETAL SPECIALTY EXAM CONSTITUTIONAL: Well developed, well nourished, appropriately groomed. RIGHT hand dominant. RESPIRATORY: Clear to auscultation bilaterally, no increased work of breathing CARDIOVASCULAR: Regular Rate/ Rhythm, no swelling, edema or tenderness in BUE or BLE. Pulses palpable in all extremities. All extremities warm. GI: + bowel sounds, soft, NTTP, nondistended. INTEGUMENTARY: Normal, no lesion, rash, masses or bruising noted in extremities. MUSCULOSKELETAL: BUE and BLE normal without defect, crepitus, subluxation, effusion, arthritic changes or TTP. Resting hand splint on right upper extremity. Right foot drop R 2 /5 L 4+ /5 ROM decreased on right, normal on left Tone normal NEURO: CN VII : Right facial droop CN VIII : Hearing intact to finger rustle with decreased hearing bilaterally CN XI : Head rotation intact, decreased right shoulder shrug CN XII : Tongue protrudes slightly right Sensation intact in all extremities without extinction. No tremor noted in 4 extremities. Follows 2 step commands. Aphasia present Dysarthria present Dysphagia present Neglect not appreciated POSTURE and GAIT: Sitting posture good. Balance and gait observed with therapy, patient walking hemiwalker and right AFO. Balance seems okay, gait improving. PSYCH: Alert, oriented x3, affect appears euthymic. Insight appears intact. - Constitutional Vitals: Vital Signs - 12hr 12/13/20 12/13/20 12/13/20 21:13 21:25 22:00 Temperature Pulse Rate 89 Respiratory 17 Rate Respiratory 17 Rate [Right Toe ] Blood Pressure 139/69 O2 Sat by Pulse Oximetry 12/13/20 12/14/20 12/14/20 22:25 04:54 05:40 Temperature 98.1 F Pulse Rate 75 75 Respiratory 17 18 Rate Respiratory Rate [Right Toe ] Blood Pressure 126/70 126/70 O2 Sat by Pulse 96 Oximetry - Allied health notes Allied health notes reviewed: nursing, PT, ST, OT FIMS assessment as documented by PT/OT/ST: Locomotion- walk/wheelchair Ambulation Distance 1 - Labs CBC & Chem 7: 12/07/20 14:25 12/07/20 14:25 Labs: Laboratory Results - last 72 hr 12/11/20 12/11/20 12/11/20 07:39 11:52 16:12 POC Glucose 88 96 89 12/11/20 12/12/20 12/12/20 21:50 07:34 12:03 POC Glucose 90 95 79 12/12/20 12/12/20 12/13/20 16:22 21:20 07:27 POC Glucose 82 100 100 12/13/20 12/13/20 12/13/20 11:21 15:59 20:54 POC Glucose 80 125 H 96 12/14/20 07:28 POC Glucose 85 Assessment and Plan CVA: Continue Secondary Stroke Prevention (Antithrombotic, Statin (Goal LDL-C <70), BP control (Goal <140/90), GLU control (Goal A1c <7), and lifestyle modification). Monitor for recurrent stroke or post-stroke recrudescence. Dual antiplatelet therapy for 21 days followed by aspirin alone. Statin okay to continue at lower dose as lipids are at goal. Continue neuromotor therapy as above. Family training when available. Monitor for post stroke depression, cognitive deficits, seizure, dysphagia, aphasia, shoulder hand syndrome, sensory deficits, spasticity, bowel/bladder deficits, sleep disturbance, vision deficits and DVT. Prognosis for recovery and Secondary Stroke Prevention discussed. Follow up with Neurology. No driving until cleared by Neurologist. MRI showed an acute/subacute 9 mm left leopoldo lacunar infarct. 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 Resting hand splint for right upper extremity use tolerated well Hypertension: Continue medication. Monitor blood pressure. Adjust medications as needed for normotension. Decrease hydralazine on 12/11. Hold for hypotension. Goal SBP <140 Diabetes: Continue carb controlled diet. Monitor glucose on a regular level with target of euglycemia. Patient's most recent A1c is 6.0. Patient previously diet controlled. We will continue sliding scale and monitor for need to start any other medications. Right foot drop: Patient will need an order for AFO prior to discharge. Dyspnea: Chest x-ray negative for any acute changes. Seems improved. Continue to monitor for improvement BPH: Continue Flomax, monitor for any signs of bladder dysfunction or incontinence. 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 Monitor for resolution over the coming days and utilize medication as needed. Dysarthria: Continue speech therapy to improve patient's ability to enunciate and make himself clearly understood. Aphasia: Continue speech therapy to improve patient's ability to communicate. At this point does not appear the patient will need alternative means of communication and hopefully this will clear over the coming days. Dysphagia: Continue modified diet. Speech therapy on board to monitor and upgrade diet as able once patient is able to swallow safely. MBS as needed. Monitor for safety and aspiration precautions in place. ADL dysfunction: OT will work on improving ability to perform ADLs (including assistive devices) to increase independence and decrease caregiver burden and improve functional transfers and mobility training. Difficulty walking: PT will work on gait training and proper use of assistive devices and advance as appropriate to use of stairs and outside ambulation on uneven surfaces. Unsteadiness on feet: PT will work on improving static and dynamic sitting and standing balance as well as proper use of assistive devices to decrease risk of falls. Abnormality of gait: PT will work to improve safety and efficiency of gait through neuromotor training and gait training along with instruction on proper use of assistive devices. Muscle weakness: PT & OT will work on strengthening exercises to improve functional strength including mixture of closed and open kinetic chain exercises. Debility: PT & OT will work on improving overall functional status to improve participation with ADLs, mobility and social involvement. Fatigue: PT & OT will work on improving endurance through aerobic exercises and therapeutic activity while monitoring patients tolerance for activity and vital signs as needed. DVT ppx: Heparin twice daily Pain: Continue physical modalities in therapy and pain medications as needed to achieve functional pain control. Sleep: Monitor and address as needed. Bowel: Monitor and address as needed. Appetite: Monitor and address as needed. Discharge planning: Pending therapy progress and care plan meeting. Will continue discussion with therapy team, SW, patient and family. Will look to discharge patient on December 22. Will need AFO, 3 and 1, and a hemiwalker at this point. May be able to improve ambulation and move the patient to a different assistive device prior to discharge Restrictions/ Precautions: Falls, aspiration WB status: FWB Functional Hx: ADLs: Independent Cognition: Independent Mobility: No AD Barriers to Discharge: Decreased mobility and ability to perform self care, balance deficits, weakness Estimated Length of Stay: 1014 days Discharge Destination: Home with family
[2020-12-14] MEDS: INSULIN LISPRO 100 UNIT/ML SUB-Q SCH ×4 (07:38→23:41)
[2020-12-14] MEDS: CLOPIDOGREL 75 MG TAB PO SCH (10:00)
[2020-12-14] MEDS: TAMSULOSIN 0.4 MG CAP PO SCH (10:00)
[2020-12-14] MEDS: LISINOPRIL 40 MG TAB PO SCH (10:00)
[2020-12-14] MEDS: metFORMIN 500 MG TAB PO SCH ×2 (10:00→17:06)
[2020-12-14] MEDS: amLODIPine 10 MG TAB PO SCH (10:00)
[2020-12-14] MEDS: ASPIRIN EC 81 MG TAB PO SCH (10:05)
[2020-12-14] MEDS: HEPARIN 5,000 UNIT/1 ML VIAL SUB-Q SCH ×2 (11:54→23:45)
[2020-12-14] MEDS: BRIMONIDINE 0.15% OPHTH SOLN OU SCH (12:07)
[2020-12-15] MEDS: hydrALAZINE 25 MG TAB PO SCH ×3 (06:30→21:29)
[2020-12-15] MEDS: CLOPIDOGREL 75 MG TAB PO SCH (08:25)
[2020-12-15] MEDS: TAMSULOSIN 0.4 MG CAP PO SCH (08:25)
[2020-12-15] MEDS: LISINOPRIL 40 MG TAB PO SCH (08:25)
[2020-12-15] MEDS: metFORMIN 500 MG TAB PO SCH ×2 (08:25→17:04)
[2020-12-15] MEDS: HEPARIN 5,000 UNIT/1 ML VIAL SUB-Q SCH ×3 (08:26→21:30)
[2020-12-15] MEDS: ASPIRIN EC 81 MG TAB PO SCH (08:26)
[2020-12-15] MEDS: INSULIN LISPRO 100 UNIT/ML SUB-Q SCH ×4 (08:26→21:36)
[2020-12-15] MEDS: amLODIPine 10 MG TAB PO SCH (08:26)
[2020-12-15 10:23] LABS: Hematocrit 43.7 % (35.5-45.6); Hemoglobin 14.5 gm/dl (11.8-15.2); Mean Corpuscular HGB Conc 33 % (32-34); Mean Corpuscular Volume 93 fl (84-94); Platelet Count 230 K/mm3 (140-440); Red Blood Count 4.69 M/mm3 (3.65-5.03); Red Cell Distribution Width 14.2 % (13.2-15.2)
[2020-12-15 10:46] LABS: BUN/Creatinine Ratio 12; Blood Urea Nitrogen 11 mg/dL (9-20); Calcium 9.8 mg/dL (8.4-10.2); Hemolysis Index 5
--- NOTE | 2020-12-15 14:05 | Progress Note ---
Subjective Date of service: 12/15/20 Principal diagnosis: CVA Interval history: 75-year-old male brought to the hospital with difficulty speaking and gait/balance issues. Symptoms started previous day on a flight from [place] to [place] with a layover in [place] at which point he could not walk. Because of this he was outside the window for TPA and had a low stroke score. Clinical picture was not consistent with large vessel occlusion. A1c at the outside hospital was 6.0. 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 Patient had mild aphasia. He was started on a modified diet for dysphagia. He was started on IV antihypertensives for hypertensive emergency. Neurology recommends dual antiplatelet therapy for 3 weeks followed by aspirin only regimen. MRI brain performed on 11/28 showed an acute to subacute 9 mm lacunar infarct in the left leopoldo. Interval History: Patient is participating in therapy and making reasonable progress. Taking rest breaks as needed. -BM. Denies pain, palpitations, dyspnea, cough, N/V. Continue to monitor. Patient is having toe pain again today, requested medication from nursing. Discussed with he and his discharge pending next week. Patient's stating that their house is not wheelchair accessible and would prefer that he discharge with a walker of which over sort is most safe for him. We did discuss that he may from time to time need a wheelchair however she stated that would not be a good option. In total, approximately 40 minutes was spent on patient care today with greater than 50% of the time counseling coordinating care. CVA: Continue secondary stroke prevention. No signs of worsening neurologic function, shoulder-hand syndrome or spasticity. Continue therapy to improve function. Resting hand splint for right upper extremity to improve function, increase stretching during time out of therapy and reduce risk of contracture. Patient will need AFO for right foot drop Right foot drop: Patient currently ambulating utilizing railing on the wall and a right AFO. Will need to order AFO (posterior) from [facility] prior to discharge, will consult orthotics. Dyspnea: Chest x-ray reviewed and is negative for acute changes. Monitor for improvement Hypertension: Patient mostly at goal with blood pressure. Patient is at max dose of amlodipine and lisinopril, increased hydralazine and monitor. Continue to monitor blood pressure on reduced dose of hydralazine. Continue to monitor and modify dose to keep patient less than 140/90. Diabetes: Well controlled so far. Continue carb controlled diet and medications and adjust for euglycemia. Dysarthria: Continue speech therapy to improve patient's ability to enunciate more clearly. Patient fairly understandable Aphasia: Continue speech therapy to improve patient's ability to communicate and make his needs known, improving Dysphagia: Continue modified diet and speech therapy. MBS as needed. Advance as able ? Central pain syndrome? Allodynia of right great toe: Slight issue with toe pain today. Does not seem as bad as it was previously. Will continue to monitor for any further signs or symptoms. All records, vitals, labs and medications were reviewed. No other issues per patient, nursing or therapy. Objective - Exam Narrative Exam: MUSCULOSKELETAL SPECIALTY EXAM CONSTITUTIONAL: Well developed, well nourished, appropriately groomed. RIGHT hand dominant. RESPIRATORY: Clear to auscultation bilaterally, no increased work of breathing CARDIOVASCULAR: Regular Rate/ Rhythm, no swelling, edema or tenderness in BUE or BLE. Pulses palpable in all extremities. All extremities warm. GI: + bowel sounds, soft, NTTP, nondistended. INTEGUMENTARY: Normal, no lesion, rash, masses or bruising noted in extremities. MUSCULOSKELETAL: BUE and BLE normal without defect, crepitus, subluxation, effusion, arthritic changes or TTP. Resting hand splint on right upper extremity. Right foot drop Toe pain today however not as bad as before, no extensor tone with light touch, tolerates palpation R 2 /5 L 4+ /5 ROM decreased on right, normal on left Tone normal NEURO: CN VII : Right facial droop CN VIII : Hearing intact to finger rustle with decreased hearing bilaterally CN XI : Head rotation intact, decreased right shoulder shrug CN XII : Tongue protrudes slightly right Sensation intact in all extremities without extinction. No tremor noted in 4 extremities. Follows 2 step commands. Aphasia present Dysarthria present Dysphagia present Neglect not appreciated POSTURE and GAIT: Sitting posture good. Balance and gait observed with therapy, patient walking hemiwalker and right AFO. Balance seems okay, gait improving. PSYCH: Alert, oriented x3, affect appears euthymic. Insight appears intact. - Constitutional Vitals: Vital Signs - 12hr 12/15/20 12/15/20 07:52 12:06 Temperature 98.2 F 97.3 F L Pulse Rate 87 96 H Respiratory 18 18 Rate Blood Pressure 137/84 134/69 O2 Sat by Pulse 97 97 Oximetry - Allied health notes Allied health notes reviewed: nursing, PT, ST, OT FIMS assessment as documented by PT/OT/ST: Locomotion- walk/wheelchair Ambulation Distance 1 - Labs CBC & Chem 7: 12/15/20 08:59 12/15/20 08:59 Labs: Laboratory Results - last 72 hr 12/12/20 12/12/20 12/13/20 16:22 21:20 07:27 WBC RBC Hgb Hct MCV MCH MCHC RDW Plt Count Sodium Potassium Chloride Carbon Dioxide Anion Gap BUN Creatinine Estimated GFR BUN/Creatinine Ratio Glucose POC Glucose 82 100 100 Calcium 12/13/20 12/13/20 12/13/20 11:21 15:59 20:54 WBC RBC Hgb Hct MCV MCH MCHC RDW Plt Count Sodium Potassium Chloride Carbon Dioxide Anion Gap BUN Creatinine Estimated GFR BUN/Creatinine Ratio Glucose POC Glucose 80 125 H 96 Calcium 12/14/20 12/14/20 12/14/20 07:28 12:02 16:07 WBC RBC Hgb Hct MCV MCH MCHC RDW Plt Count Sodium Potassium Chloride Carbon Dioxide Anion Gap BUN Creatinine Estimated GFR BUN/Creatinine Ratio Glucose POC Glucose 85 102 111 H Calcium 12/14/20 12/15/20 12/15/20 21:54 07:54 08:59 WBC 4.8 RBC 4.69 Hgb 14.5 Hct 43.7 MCV 93 MCH 31 MCHC 33 RDW 14.2 Plt Count 230 Sodium Potassium Chloride Carbon Dioxide Anion Gap BUN Creatinine Estimated GFR BUN/Creatinine Ratio Glucose POC Glucose 114 H 108 H Calcium 12/15/20 12/15/20 08:59 12:04 WBC RBC Hgb Hct MCV MCH MCHC RDW Plt Count Sodium 137 Potassium 3.9 Chloride 100.2 Carbon Dioxide 27 Anion Gap 14 BUN 11 Creatinine 0.9 Estimated GFR > 60 BUN/Creatinine Ratio 12 Glucose 139 H POC Glucose 76 Calcium 9.8 Assessment and Plan CVA: Continue Secondary Stroke Prevention (Antithrombotic, Statin (Goal LDL-C <70), BP control (Goal <140/90), GLU control (Goal A1c <7), and lifestyle modification). Monitor for recurrent stroke or post-stroke recrudescence. Dual antiplatelet therapy for 21 days followed by aspirin alone. Statin okay to continue at lower dose as lipids are at goal. Continue neuromotor therapy as above. Family training when available. Monitor for post stroke depression, cognitive deficits, seizure, dysphagia, aphasia, shoulder hand syndrome, sensory deficits, spasticity, bowel/bladder deficits, sleep disturbance, vision deficits and DVT. Prognosis for recovery and Secondary Stroke Prevention discussed. Follow up with Neurology. No driving until cleared by Neurologist. MRI showed an acute/subacute 9 mm left leopoldo lacunar infarct. 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 Resting hand splint for right upper extremity use tolerated well Hypertension: Continue medication. Monitor blood pressure. Adjust medications as needed for normotension. Decrease hydralazine on 12/11. Hold for hypotension. Goal SBP <140 Diabetes: Continue carb controlled diet. Monitor glucose on a regular level with target of euglycemia. Patient's most recent A1c is 6.0. Patient previously diet controlled. We will continue sliding scale and monitor for need to start any other medications. Right foot drop: Patient will need an order for AFO prior to discharge. Dyspnea: Chest x-ray negative for any acute changes. Seems improved. Continue to monitor for improvement BPH: Continue Flomax, monitor for any signs of bladder dysfunction or incontinence. 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 Monitor for resolution over the coming days and utilize medication as needed. Dysarthria: Continue speech therapy to improve patient's ability to enunciate and make himself clearly understood. Aphasia: Continue speech therapy to improve patient's ability to communicate. At this point does not appear the patient will need alternative means of communication and hopefully this will clear over the coming days. Dysphagia: Continue modified diet. Speech therapy on board to monitor and upgrade diet as able once patient is able to swallow safely. MBS as needed. Monitor for safety and aspiration precautions in place. ADL dysfunction: OT will work on improving ability to perform ADLs (including assistive devices) to increase independence and decrease caregiver burden and improve functional transfers and mobility training. Difficulty walking: PT will work on gait training and proper use of assistive devices and advance as appropriate to use of stairs and outside ambulation on uneven surfaces. Unsteadiness on feet: PT will work on improving static and dynamic sitting and standing balance as well as proper use of assistive devices to decrease risk of falls. Abnormality of gait: PT will work to improve safety and efficiency of gait through neuromotor training and gait training along with instruction on proper use of assistive devices. Muscle weakness: PT & OT will work on strengthening exercises to improve functi onal strength including mixture of closed and open kinetic chain exercises. Debility: PT & OT will work on improving overall functional status to improve participation with ADLs, mobility and social involvement. Fatigue: PT & OT will work on improving endurance through aerobic exercises and therapeutic activity while monitoring patients tolerance for activity and vital signs as needed. DVT ppx: Heparin twice daily Pain: Continue physical modalities in therapy and pain medications as needed to achieve functional pain control. Sleep: Monitor and address as needed. Bowel: Monitor and address as needed. Appetite: Monitor and address as needed. Discharge planning: Pending therapy progress and care plan meeting. Will continue discussion with therapy team, SW, patient and family. Will look to discharge patient on December 22. Will need AFO, 3 and 1, and a hemiwalker at this point. May be able to improve ambulation and move the patient to a different assistive device prior to discharge Restrictions/ Precautions: Falls, aspiration WB status: FWB Functional Hx: ADLs: Independent Cognition: Independent Mobility: No AD Barriers to Discharge: Decreased mobility and ability to perform self care, balance deficits, weakness Estimated Length of Stay: 1014 days Discharge Destination: Home with family
[2020-12-15] MEDS: NAPROXEN 375 MG TAB PO PRN ×2 (15:59→21:29)
[2020-12-15] MEDS: BRIMONIDINE 0.15% OPHTH SOLN OU SCH (16:00)
[2020-12-16] MEDS: hydrALAZINE 25 MG TAB PO SCH ×3 (05:35→21:48)
[2020-12-16] MEDS: ASPIRIN EC 81 MG TAB PO SCH (08:21)
[2020-12-16] MEDS: amLODIPine 10 MG TAB PO SCH (08:21)
[2020-12-16] MEDS: LISINOPRIL 40 MG TAB PO SCH (08:22)
[2020-12-16] MEDS: HEPARIN 5,000 UNIT/1 ML VIAL SUB-Q SCH ×3 (08:22→21:48)
[2020-12-16] MEDS: CLOPIDOGREL 75 MG TAB PO SCH (08:22)
[2020-12-16] MEDS: TAMSULOSIN 0.4 MG CAP PO SCH (08:22)
[2020-12-16] MEDS: metFORMIN 500 MG TAB PO SCH ×2 (08:23→17:28)
[2020-12-16] MEDS: INSULIN LISPRO 100 UNIT/ML SUB-Q SCH ×4 (08:23→21:48)
[2020-12-16] MEDS: BRIMONIDINE 0.15% OPHTH SOLN OU SCH (11:50)
[2020-12-16] MEDS: POLYETHYLENE GLYCOL 3350 17 GM POWDER PO PRN (12:28)
--- NOTE | 2020-12-16 14:47 | Progress Note ---
Subjective Date of service: 12/16/20 Principal diagnosis: CVA Interval history: 75-year-old male brought to the hospital with difficulty speaking and gait/balance issues. Symptoms started previous day on a flight from [place] to [place] with a layover in [place] at which point he could not walk. Because of this he was outside the window for TPA and had a low stroke score. Clinical picture was not consistent with large vessel occlusion. A1c at the outside hospital was 6.0. 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 Patient had mild aphasia. He was started on a modified diet for dysphagia. He was started on IV antihypertensives for hypertensive emergency. Neurology recommends dual antiplatelet therapy for 3 weeks followed by aspirin only regimen. MRI brain performed on 11/28 showed an acute to subacute 9 mm lacunar infarct in the left leopoldo. Interval History: Patient is participating in therapy and making reasonable progress. Taking rest breaks as needed. +BM. Denies pain, palpitations, dyspnea, cough, N/V. Continue to monitor. Toe pain better today. Advance to walking on quad cane without too much difficulty, but will need more practice before he is safe CVA: Continue secondary stroke prevention. No signs of worsening neurologic function, shoulder-hand syndrome or spasticity. Continue therapy to improve function. Resting hand splint for right upper extremity to improve function, increase stretching during time out of therapy and reduce risk of contracture. Patient will need AFO for right foot drop Right foot drop: Patient currently ambulating utilizing railing on the wall and a right AFO. Will need to order AFO (posterior) from [facility] prior to discharge, have consulted orthotics. Dyspnea: Chest x-ray reviewed and is negative for acute changes. Monitor for improvement Hypertension: Patient mostly at goal with blood pressure. Patient is at max dose of amlodipine and lisinopril, increased hydralazine and monitor. Continue to monitor blood pressure on reduced dose of hydralazine. Continue to monitor and modify dose to keep patient less than 140/90. Diabetes: Well controlled so far. Continue carb controlled diet and medications and adjust for euglycemia. Dysarthria: Continue speech therapy to improve patient's ability to enunciate more clearly. Patient fairly understandable Aphasia: Continue speech therapy to improve patient's ability to communicate and make his needs known, improving Dysphagia: Continue modified diet and speech therapy. MBS as needed. Advance as able ? Central pain syndrome? Allodynia of right great toe: Slight issue with toe pain today, but better. Does not seem as bad as it was previously. Will continue to monitor for any further signs or symptoms. All records, vitals, labs and medications were reviewed. No other issues per patient, nursing or therapy. Objective - Exam Narrative Exam: MUSCULOSKELETAL SPECIALTY EXAM CONSTITUTIONAL: Well developed, well nourished, appropriately groomed. RIGHT hand dominant. RESPIRATORY: Clear to auscultation bilaterally, no increased work of breathing CARDIOVASCULAR: Regular Rate/ Rhythm, no swelling, edema or tenderness in BUE or BLE. Pulses palpable in all extremities. All extremities warm. GI: + bowel sounds, soft, NTTP, nondistended. INTEGUMENTARY: Normal, no lesion, rash, masses or bruising noted in extremities. MUSCULOSKELETAL: BUE and BLE normal without defect, crepitus, subluxation, effusion, arthritic changes or TTP. Resting hand splint on right upper extremity. Right foot drop Toe pain better today, no extensor tone with light touch, tolerates palpation R 2 /5 L 4+ /5 ROM decreased on right, normal on left Tone normal NEURO: CN VII : Right facial droop CN VIII : Hearing intact to finger rustle with decreased hearing bilaterally CN XI : Head rotation intact, decreased right shoulder shrug CN XII : Tongue protrudes slightly right Sensation intact in all extremities without extinction. No tremor noted in 4 extremities. Follows 2 step commands. Aphasia present Dysarthria present Dysphagia present Neglect not appreciated POSTURE and GAIT: Sitting posture good. Balance and gait observed with therapy, patient walking with quad cane and right AFO. Balance seems okay, gait improving. PSYCH: Alert, oriented x3, affect appears euthymic. Insight appears intact. - Constitutional Vitals: Vital Signs - 12hr 12/16/20 12/16/20 12/16/20 04:11 07:19 11:44 Temperature 97.8 F 97.8 F 98.2 F Pulse Rate 89 73 87 Respiratory 18 16 18 Rate Blood Pressure 140/69 134/86 140/78 O2 Sat by Pulse 96 96 96 Oximetry - Allied health notes Allied health notes reviewed: nursing, PT, OT FIMS assessment as documented by PT/OT/ST: Locomotion- walk/wheelchair Ambulation Distance 1 - Labs CBC & Chem 7: 12/15/20 08:59 12/15/20 08:59 Labs: Laboratory Results - last 72 hr 12/13/20 12/13/20 12/14/20 15:59 20:54 07:28 WBC RBC Hgb Hct MCV MCH MCHC RDW Plt Count Sodium Potassium Chloride Carbon Dioxide Anion Gap BUN Creatinine Estimated GFR BUN/Creatinine Ratio Glucose POC Glucose 125 H 96 85 Calcium 12/14/20 12/14/20 12/14/20 12:02 16:07 21:54 WBC RBC Hgb Hct MCV MCH MCHC RDW Plt Count Sodium Potassium Chloride Carbon Dioxide Anion Gap BUN Creatinine Estimated GFR BUN/Creatinine Ratio Glucose POC Glucose 102 111 H 114 H Calcium 12/15/20 12/15/20 12/15/20 07:54 08:59 08:59 WBC 4.8 RBC 4.69 Hgb 14.5 Hct 43.7 MCV 93 MCH 31 MCHC 33 RDW 14.2 Plt Count 230 Sodium 137 Potassium 3.9 Chloride 100.2 Carbon Dioxide 27 Anion Gap 14 BUN 11 Creatinine 0.9 Estimated GFR > 60 BUN/Creatinine Ratio 12 Glucose 139 H POC Glucose 108 H Calcium 9.8 12/15/20 12/15/20 12/15/20 12:04 16:01 20:46 WBC RBC Hgb Hct MCV MCH MCHC RDW Plt Count Sodium Potassium Chloride Carbon Dioxide Anion Gap BUN Creatinine Estimated GFR BUN/Creatinine Ratio Glucose POC Glucose 76 100 118 H Calcium 12/16/20 12/16/20 07:15 11:01 WBC RBC Hgb Hct MCV MCH MCHC RDW Plt Count Sodium Potassium Chloride Carbon Dioxide Anion Gap BUN Creatinine Estimated GFR BUN/Creatinine Ratio Glucose POC Glucose 89 90 Calcium Assessment and Plan CVA: Continue Secondary Stroke Prevention (Antithrombotic, Statin (Goal LDL-C <70), BP control (Goal <140/90), GLU control (Goal A1c <7), and lifestyle modifi cation). Monitor for recurrent stroke or post-stroke recrudescence. Dual antiplatelet therapy for 21 days followed by aspirin alone. Statin okay to continue at lower dose as lipids are at goal. Continue neuromotor therapy as above. Family training when available. Monitor for post stroke depression, cognitive deficits, seizure, dysphagia, aphasia, shoulder hand syndrome, sensory deficits, spasticity, bowel/bladder deficits, sleep disturbance, vision deficits and DVT. Prognosis for recovery and Secondary Stroke Prevention discussed. Follow up with Neurology. No driving until cleared by Neurologist. MRI showed an acute/subacute 9 mm left leopoldo lacunar infarct. 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 Resting hand splint for right upper extremity use tolerated well Hypertension: Continue medication. Monitor blood pressure. Adjust medications as needed for normotension. Decrease hydralazine on 12/11. Hold for hypotension. Goal SBP <140 Diabetes: Continue carb controlled diet. Monitor glucose on a regular level with target of euglycemia. Patient's most recent A1c is 6.0. Patient previously diet controlled. We will continue sliding scale and monitor for need to start any other medications. Right foot drop: Patient will need an order for AFO prior to discharge. Dyspnea: Chest x-ray negative for any acute changes. Seems improved. Continue to monitor for improvement BPH: Continue Flomax, monitor for any signs of bladder dysfunction or incontinence. 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 Monitor for resolution over the coming days and utilize medication as needed. Dysarthria: Continue speech therapy to improve patient's ability to enunciate and make himself clearly understood. Aphasia: Continue speech therapy to improve patient's ability to communicate. At this point does not appear the patient will need alternative means of communication and hopefully this will clear over the coming days. Dysphagia: Continue modified diet. Speech therapy on board to monitor and upgrade diet as able once patient is able to swallow safely. MBS as needed. Monitor for safety and aspiration precautions in place. ADL dysfunction: OT will work on improving ability to perform ADLs (including assistive devices) to increase independence and decrease caregiver burden and improve functional transfers and mobility training. Difficulty walking: PT will work on gait training and proper use of assistive devices and advance as appropriate to use of stairs and outside ambulation on uneven surfaces. Unsteadiness on feet: PT will work on improving static and dynamic sitting and standing balance as well as proper use of assistive devices to decrease risk of falls. Abnormality of gait: PT will work to improve safety and efficiency of gait through neuromotor training and gait training along with instruction on proper use of assistive devices. Muscle weakness: PT & OT will work on strengthening exercises to improve functional strength including mixture of closed and open kinetic chain exercises. Debility: PT & OT will work on improving overall functional status to improve participation with ADLs, mobility and social involvement. Fatigue: PT & OT will work on improving endurance through aerobic exercises and therapeutic activity while monitoring patients tolerance for activity and vital signs as needed. DVT ppx: Heparin twice daily Pain: Continue physical modalities in therapy and pain medications as needed to achieve functional pain control. Sleep: Monitor and address as needed. Bowel: Monitor and address as needed. Appetite: Monitor and address as needed. Discharge planning: Pending therapy progress and care plan meeting. Will continue discussion with therapy team, SW, patient and family. Will look to discharge patient on December 22. Will need AFO, 3 and 1, and a hemiwalker at this point. May be able to improve ambulation and move the patient to a different assistive device prior to discharge Restrictions/ Precautions: Falls, aspiration WB status: FWB Functional Hx: ADLs: Independent Cognition: Independent Mobility: No AD Barriers to Discharge: Decreased mobility and ability to perform self care, balance deficits, weakness Estimated Length of Stay: 1014 days Discharge Destination: Home with family
[2020-12-17] MEDS: hydrALAZINE 25 MG TAB PO SCH ×3 (06:01→21:53)
--- NOTE | 2020-12-17 07:43 | Progress Note ---
Subjective Date of service: 12/17/20 Principal diagnosis: CVA Interval history: 75-year-old male brought to the hospital with difficulty speaking and gait/balance issues. Symptoms started previous day on a flight from [place] to [place] with a layover in [place] at which point he could not walk. Because of this he was outside the window for TPA and had a low stroke score. Clinical picture was not consistent with large vessel occlusion. A1c at the outside hospital was 6.0. 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 Patient had mild aphasia. He was started on a modified diet for dysphagia. He was started on IV antihypertensives for hypertensive emergency. Neurology recommends dual antiplatelet therapy for 3 weeks followed by aspirin only regimen. MRI brain performed on 11/28 showed an acute to subacute 9 mm lacunar infarct in the left leopoldo. Interval History: Patient is participating in therapy and making reasonable progress. Taking rest breaks as needed. +BM. Denies pain, palpitations, dyspnea, cough, N/V. Continue to monitor. Toe pain better today. Advance to walking on quad cane without too much difficulty, but will need more practice before he is safe. No acute events overnight. Discussed with the patient and we are looking at discharging next week still on 12/22 CVA: Continue secondary stroke prevention. No signs of worsening neurologic function, shoulder-hand syndrome or spasticity. Continue therapy to improve function. Resting hand splint for right upper extremity to improve function, increase stretching during time out of therapy and reduce risk of contracture. Patient will need AFO for right foot drop Right foot drop: Patient currently ambulating utilizing railing on the wall and a right AFO. Will need to order AFO (posterior) from [facility] prior to discharge, have consulted orthotics. Dyspnea: Chest x-ray reviewed and is negative for acute changes. Monitor for improvement Hypertension: Patient mostly at goal with blood pressure. Patient is at max dose of amlodipine and lisinopril, increased hydralazine and monitor. Continue to monitor blood pressure on reduced dose of hydralazine. Continue to monitor and modify dose to keep patient less than 140/90. Diabetes: Well controlled so far. Continue carb controlled diet and medications and adjust for euglycemia. Dysarthria: Continue speech therapy to improve patient's ability to enunciate more clearly. Patient fairly understandable Aphasia: Continue speech therapy to improve patient's ability to communicate and make his needs known, improving Dysphagia: Continue modified diet and speech therapy. MBS as needed. Advance as able ? Central pain syndrome? Allodynia of right great toe: Slight issue with toe pain today, but better. Does not seem as bad as it was previously. Will continue to monitor for any further signs or symptoms. All records, vitals, labs and medications were reviewed. No other issues per patient, nursing or therapy. Objective - Exam Narrative Exam: MUSCULOSKELETAL SPECIALTY EXAM CONSTITUTIONAL: Well developed, well nourished, appropriately groomed. RIGHT hand dominant. RESPIRATORY: Clear to auscultation bilaterally, no increased work of breathing CARDIOVASCULAR: Regular Rate/ Rhythm, no swelling, edema or tenderness in BUE or BLE. Pulses palpable in all extremities. All extremities warm. GI: + bowel sounds, soft, NTTP, nondistended. INTEGUMENTARY: Normal, no lesion, rash, masses or bruising noted in extremities. MUSCULOSKELETAL: BUE and BLE normal without defect, crepitus, subluxation, effusion, arthritic changes or TTP. Resting hand splint on right upper extremity. Right foot drop Toe pain better today, no extensor tone with light touch, tolerates palpation R 2 /5 L 4+ /5 ROM decreased on right, normal on left Tone normal NEURO: CN VII : Right facial droop CN VIII : Hearing intact to finger rustle with decreased hearing bilaterally CN XI : Head rotation intact, decreased right shoulder shrug CN XII : Tongue protrudes slightly right Sensation intact in all extremities without extinction. No tremor noted in 4 extremities. Follows 2 step commands. Aphasia present Dysarthria present Dysphagia present Neglect not appreciated POSTURE and GAIT: Sitting posture good. Balance and gait observed with therapy, patient walking with quad cane and right AFO. Balance seems okay, gait improving. PSYCH: Alert, oriented x3, affect appears euthymic. Insight appears intact. - Constitutional Vitals: Vital Signs - 12hr 12/16/20 12/17/20 12/17/20 20:07 04:55 06:01 Temperature 98.3 F 98.7 F Pulse Rate 77 81 81 Respiratory 18 19 Rate Blood Pressure 125/70 134/79 134/79 O2 Sat by Pulse 96 96 Oximetry - Allied health notes Allied health notes reviewed: nursing, PT, OT FIMS assessment as documented by PT/OT/ST: Locomotion- walk/wheelchair Ambulation Distance 1 - Labs CBC & Chem 7: 12/15/20 08:59 12/15/20 08:59 Labs: Laboratory Results - last 72 hr 12/14/20 12/14/20 12/14/20 12:02 16:07 21:54 WBC RBC Hgb Hct MCV MCH MCHC RDW Plt Count Sodium Potassium Chloride Carbon Dioxide Anion Gap BUN Creatinine Estimated GFR BUN/Creatinine Ratio Glucose POC Glucose 102 111 H 114 H Calcium 12/15/20 12/15/20 12/15/20 07:54 08:59 08:59 WBC 4.8 RBC 4.69 Hgb 14.5 Hct 43.7 MCV 93 MCH 31 MCHC 33 RDW 14.2 Plt Count 230 Sodium 137 Potassium 3.9 Chloride 100.2 Carbon Dioxide 27 Anion Gap 14 BUN 11 Creatinine 0.9 Estimated GFR > 60 BUN/Creatinine Ratio 12 Glucose 139 H POC Glucose 108 H Calcium 9.8 12/15/20 12/15/20 12/15/20 12:04 16:01 20:46 WBC RBC Hgb Hct MCV MCH MCHC RDW Plt Count Sodium Potassium Chloride Carbon Dioxide Anion Gap BUN Creatinine Estimated GFR BUN/Creatinine Ratio Glucose POC Glucose 76 100 118 H Calcium 12/16/20 12/16/20 12/16/20 07:15 11:01 16:24 WBC RBC Hgb Hct MCV MCH MCHC RDW Plt Count Sodium Potassium Chloride Carbon Dioxide Anion Gap BUN Creatinine Estimated GFR BUN/Creatinine Ratio Glucose POC Glucose 89 90 105 Calcium 12/16/20 21:31 WBC RBC Hgb Hct MCV MCH MCHC RDW Plt Count Sodium Potassium Chloride Carbon Dioxide Anion Gap BUN Creatinine Estimated GFR BUN/Creatinine Ratio Glucose POC Glucose 94 Calcium Assessment and Plan CVA: Continue Secondary Stroke Prevention (Antithrombotic, Statin (Goal LDL-C <70), BP control (Goal <140/90), GLU control (Goal A1c <7), and lifestyle modification). Monitor for recurrent stroke or post-stroke recrudescence. Dual antiplatelet therapy for 21 days followed by aspirin alone. Statin okay to continue at lower dose as lipids are at goal. Continue neuromotor therapy as above. Family training when available. Monitor for post stroke depression, cognitive deficits, seizure, dysphagia, aphasia, shoulder hand syndrome, sensory deficits, spasticity, bowel/bladder deficits, sleep disturbance, vision deficits and DVT. Prognosis for recovery and Secondary Stroke Prevention discussed. Follow up with Neurology. No driving until cleared by Neurologist. MRI showed an acute/subacute 9 mm left leopoldo lacunar infarct. 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 Resting hand splint for right upper extremity use tolerated well Hypertension: Continue medication. Monitor blood pressure. Adjust medications as needed for normotension. Decrease hydralazine on 12/11. Hold for hypotension. Goal SBP <140 Diabetes: Continue carb controlled diet. Monitor glucose on a regular level with target of euglycemia. Patient's most recent A1c is 6.0. Patient previously diet controlled. We will continue sliding scale and monitor for need to start any other medications. Right foot drop: Patient will need an order for AFO prior to discharge. Dyspnea: Chest x-ray negative for any acute changes. Seems improved. Continue to monitor for improvement BPH: Continue Flomax, monitor for any signs of bladder dysfunction or incontinence. 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 Monitor for resolution over the coming days and utilize medication as needed. Dysarthria: Continue speech therapy to improve patient's ability to enunciate and make himself clearly understood. Aphasia: Continue speech therapy to improve patient's ability to communicate. At this point does not appear the patient will need alternative means of commun ication and hopefully this will clear over the coming days. Dysphagia: Continue modified diet. Speech therapy on board to monitor and upgrade diet as able once patient is able to swallow safely. MBS as needed. Monitor for safety and aspiration precautions in place. ADL dysfunction: OT will work on improving ability to perform ADLs (including assistive devices) to increase independence and decrease caregiver burden and improve functional transfers and mobility training. Difficulty walking: PT will work on gait training and proper use of assistive devices and advance as appropriate to use of stairs and outside ambulation on uneven surfaces. Unsteadiness on feet: PT will work on improving static and dynamic sitting and standing balance as well as proper use of assistive devices to decrease risk of falls. Abnormality of gait: PT will work to improve safety and efficiency of gait thro [facility] neuromotor training and gait training along with instruction on proper use of assistive devices. Muscle weakness: PT & OT will work on strengthening exercises to improve functional strength including mixture of closed and open kinetic chain exercises. Debility: PT & OT will work on improving overall functional status to improve participation with ADLs, mobility and social involvement. Fatigue: PT & OT will work on improving endurance through aerobic exercises and therapeutic activity while monitoring patients tolerance for activity and vital signs as needed. DVT ppx: Heparin twice daily Pain: Continue physical modalities in therapy and pain medications as needed to achieve functional pain control. Sleep: Monitor and address as needed. Bowel: Monitor and address as needed. Appetite: Monitor and address as needed. Discharge planning: Pending therapy progress and care plan meeting. Will continue discussion with therapy team, SW, patient and family. Will look to discharge patient on December 22. Will need AFO, 3 and 1, and a hemiwalker at this point. May be able to improve ambulation and move the patient to a different assistive device prior to discharge Restrictions/ Precautions: Falls, aspiration WB status: FWB Functional Hx: ADLs: Independent Cognition: Independent Mobility: No AD Barriers to Discharge: Decreased mobility and ability to perform self care, hetal nce deficits, weakness Estimated Length of Stay: 1014 days Discharge Destination: Home with family
[2020-12-17] MEDS: CLOPIDOGREL 75 MG TAB PO SCH (08:16)
[2020-12-17] MEDS: INSULIN LISPRO 100 UNIT/ML SUB-Q SCH ×4 (08:16→21:58)
[2020-12-17] MEDS: metFORMIN 500 MG TAB PO SCH ×2 (08:16→17:33)
[2020-12-17] MEDS: LISINOPRIL 40 MG TAB PO SCH (08:16)
[2020-12-17] MEDS: amLODIPine 10 MG TAB PO SCH (08:16)
[2020-12-17] MEDS: HEPARIN 5,000 UNIT/1 ML VIAL SUB-Q SCH ×3 (08:16→21:53)
[2020-12-17] MEDS: TAMSULOSIN 0.4 MG CAP PO SCH (08:16)
[2020-12-17] MEDS: ASPIRIN EC 81 MG TAB PO SCH (08:16)
[2020-12-17] MEDS: BRIMONIDINE 0.15% OPHTH SOLN OU SCH ×2 (08:17→09:17)
[2020-12-17] MEDS: POLYETHYLENE GLYCOL 3350 17 GM POWDER PO PRN (15:08)
[2020-12-18] MEDS: hydrALAZINE 25 MG TAB PO SCH ×3 (05:31→21:26)
[2020-12-18] MEDS: INSULIN LISPRO 100 UNIT/ML SUB-Q SCH ×3 (08:12→17:27)
[2020-12-18] MEDS: HEPARIN 5,000 UNIT/1 ML VIAL SUB-Q SCH ×2 (10:05→21:26)
[2020-12-18] MEDS: amLODIPine 10 MG TAB PO SCH (10:05)
[2020-12-18] MEDS: CLOPIDOGREL 75 MG TAB PO SCH (10:05)
[2020-12-18] MEDS: TAMSULOSIN 0.4 MG CAP PO SCH (10:05)
[2020-12-18] MEDS: metFORMIN 500 MG TAB PO SCH ×2 (10:05→18:31)
[2020-12-18] MEDS: ASPIRIN EC 81 MG TAB PO SCH (10:05)
[2020-12-18] MEDS: LISINOPRIL 40 MG TAB PO SCH (10:06)
[2020-12-18] MEDS: BRIMONIDINE 0.15% OPHTH SOLN OU SCH (10:06)
[2020-12-18] MEDS: ACETAMINOPHEN 325 MG TAB PO PRN (21:26)
[2020-12-19] MEDS: INSULIN LISPRO 100 UNIT/ML SUB-Q SCH ×5 (06:18→23:38)
[2020-12-19] MEDS: hydrALAZINE 25 MG TAB PO SCH ×3 (06:19→22:04)
[2020-12-19] MEDS: ASPIRIN EC 81 MG TAB PO SCH (08:30)
[2020-12-19] MEDS: amLODIPine 10 MG TAB PO SCH (08:30)
[2020-12-19] MEDS: HEPARIN 5,000 UNIT/1 ML VIAL SUB-Q SCH ×3 (08:30→22:05)
[2020-12-19] MEDS: LISINOPRIL 40 MG TAB PO SCH (08:31)
[2020-12-19] MEDS: TAMSULOSIN 0.4 MG CAP PO SCH (08:31)
[2020-12-19] MEDS: metFORMIN 500 MG TAB PO SCH ×2 (08:31→16:59)
[2020-12-19] MEDS: CLOPIDOGREL 75 MG TAB PO SCH (08:31)
[2020-12-19] MEDS: BRIMONIDINE 0.15% OPHTH SOLN OU SCH ×2 (08:35→13:32)
[2020-12-19] MEDS: ACETAMINOPHEN 325 MG TAB PO PRN (22:05)
[2020-12-20] MEDS: hydrALAZINE 25 MG TAB PO SCH ×3 (06:48→21:13)
[2020-12-20] MEDS: ASPIRIN EC 81 MG TAB PO SCH (08:11)
[2020-12-20 08:12] LABS: Hematocrit 43.9 % (35.5-45.6); Hemoglobin 15.2 gm/dl (11.8-15.2); Mean Corpuscular HGB Conc 35 % (32-34); Mean Corpuscular Volume 91 fl (84-94); Platelet Count 199 K/mm3 (140-440); Red Blood Count 4.81 M/mm3 (3.65-5.03); Red Cell Distribution Width 14.2 % (13.2-15.2)
[2020-12-20] MEDS: metFORMIN 500 MG TAB PO SCH ×2 (08:12→17:13)
[2020-12-20] MEDS: amLODIPine 10 MG TAB PO SCH (08:12)
[2020-12-20] MEDS: LISINOPRIL 40 MG TAB PO SCH (08:12)
[2020-12-20] MEDS: TAMSULOSIN 0.4 MG CAP PO SCH (08:12)
[2020-12-20] MEDS: CLOPIDOGREL 75 MG TAB PO SCH (08:12)
[2020-12-20] MEDS: INSULIN LISPRO 100 UNIT/ML SUB-Q SCH ×4 (08:13→21:37)
[2020-12-20 08:40] LABS: BUN/Creatinine Ratio 13; Blood Urea Nitrogen 12 mg/dL (9-20); Hemolysis Index 6
[2020-12-20] MEDS: HEPARIN 5,000 UNIT/1 ML VIAL SUB-Q SCH ×2 (13:49→21:13)
[2020-12-20] MEDS: BRIMONIDINE 0.15% OPHTH SOLN OU SCH (13:50)
[2020-12-21] MEDS: hydrALAZINE 25 MG TAB PO SCH ×3 (05:13→21:55)
[2020-12-21] MEDS: amLODIPine 10 MG TAB PO SCH (09:07)
[2020-12-21] MEDS: metFORMIN 500 MG TAB PO SCH ×2 (09:07→17:53)
[2020-12-21] MEDS: TAMSULOSIN 0.4 MG CAP PO SCH (09:07)
[2020-12-21] MEDS: CLOPIDOGREL 75 MG TAB PO SCH (09:07)
[2020-12-21] MEDS: ASPIRIN EC 81 MG TAB PO SCH (09:07)
[2020-12-21] MEDS: HEPARIN 5,000 UNIT/1 ML VIAL SUB-Q SCH ×2 (09:08→21:55)
[2020-12-21] MEDS: LISINOPRIL 40 MG TAB PO SCH (09:08)
[2020-12-21] MEDS: INSULIN LISPRO 100 UNIT/ML SUB-Q SCH ×4 (10:29→22:40)
[2020-12-21] MEDS: BRIMONIDINE 0.15% OPHTH SOLN OU SCH (10:30)
--- NOTE | 2020-12-21 19:50 | Progress Note ---
Subjective Date of service: 12/21/20 Principal diagnosis: CVA Interval history: 75-year-old male brought to the hospital with difficulty speaking and gait/balance issues. Symptoms started previous day on a flight from [place] to [place] with a layover in [place] at which point he could not walk. Because of this he was outside the window for TPA and had a low stroke score. Clinical picture was not consistent with large vessel occlusion. A1c at the outside hospital was 6.0. 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 Patient had mild aphasia. He was started on a modified diet for dysphagia. He was started on IV antihypertensives for hypertensive emergency. Neurology recommends dual antiplatelet therapy for 3 weeks followed by aspirin only regimen. MRI brain performed on 11/28 showed an acute to subacute 9 mm lacunar infarct in the left leopoldo. Interval History: Patient is participating in therapy and making reasonable progress. Taking rest breaks as needed. +BM. Denies pain, palpitations, dyspnea, cough, N/V. Continue to monitor. No toe pain today. Advance to walking on quad cane without too much difficulty. No acute events overnight. CVA: Continue secondary stroke prevention. No signs of worsening neurologic function, shoulder-hand syndrome or spasticity. Continue therapy to improve function. Resting hand splint for right upper extremity to improve function, increase stretching during time out of therapy and reduce risk of contracture. Patient will need AFO for right foot drop Right foot drop: Patient currently ambulating utilizing railing on the wall and a right AFO. Will need to order AFO (posterior) from [facility] prior to discharge, have consulted orthotics. Dyspnea: Chest x-ray reviewed and is negative for acute changes. Monitor for improvement Hypertension: Patient mostly at goal with blood pressure. Patient is at max dose of amlodipine and lisinopril, increased hydralazine and monitor. Continue to monitor blood pressure on reduced dose of hydralazine. Continue to monitor and modify dose to keep patient less than 140/90. Diabetes: Well controlled so far. Continue carb controlled diet and medications and adjust for euglycemia. Dysarthria: Continue speech therapy to improve patient's ability to enunciate more clearly. Patient fairly understandable Aphasia: Continue speech therapy to improve patient's ability to communicate and make his needs known, improving Dysphagia: Continue modified diet and speech therapy. MBS as needed. Advance as able ? Central pain syndrome? Allodynia of right great toe: Slight issue with toe pain today, but better. Does not seem as bad as it was previously. Will continue to monitor for any further signs or symptoms. All records, vitals, labs and medications were reviewed. No other issues per patient, nursing or therapy. Patient discussed during team conference. Making good progress. We will look to discharge on Sunday. May need a different AFO at this point, will discuss further. Objective - Exam Narrative Exam: MUSCULOSKELETAL SPECIALTY EXAM CONSTITUTIONAL: Well developed, well nourished, appropriately groomed. RIGHT hand dominant. RESPIRATORY: Clear to auscultation bilaterally, no increased work of breathing CARDIOVASCULAR: Regular Rate/ Rhythm, no swelling, edema or tenderness in BUE or BLE. Pulses palpable in all extremities. All extremities warm. GI: + bowel sounds, soft, NTTP, nondistended. INTEGUMENTARY: Normal, no lesion, rash, masses or bruising noted in extremities. MUSCULOSKELETAL: BUE and BLE normal without defect, crepitus, subluxation, effusion, arthritic changes or TTP. Resting hand splint on right upper extremity. Right foot drop Toe pain better today, no extensor tone with light touch, tolerates palpation R 2 /5 L 4+ /5 ROM decreased on right, normal on left Tone normal NEURO: CN VII : Right facial droop CN VIII : Hearing intact to finger rustle with decreased hearing bilaterally CN XI : Head rotation intact, decreased right shoulder shrug CN XII : Tongue protrudes slightly right Sensation intact in all extremities without extinction. No tremor noted in 4 extremities. Follows 2 step commands. Aphasia present Dysarthria present Dysphagia present Neglect not appreciated POSTURE and GAIT: Sitting posture good. Balance and gait observed with therapy, patient walking with quad cane and right AFO. Balance seems okay, gait improving. PSYCH: Alert, oriented x3, affect appears euthymic. Insight appears intact. - Constitutional Vitals: Vital Signs - 12hr 12/21/20 12/21/20 12/21/20 09:07 09:08 11:53 Temperature 97.9 F Pulse Rate 74 74 87 Respiratory 16 Rate Blood Pressure 144/74 144/74 143/79 O2 Sat by Pulse 100 Oximetry 12/21/20 14:42 Temperature Pulse Rate 87 Respiratory Rate Blood Pressure 143/79 O2 Sat by Pulse Oximetry - Allied health notes Allied health notes reviewed: nursing, PT, OT FIMS assessment as documented by PT/OT/ST: Social interaction/Memory/Problem solving Social Interaction FIM Score 6. Mod. [place] (Mostly appropriate. May need meds. No supv.) Memory FIM Score 6. Modified [place](Mild difficulty remembering people/routines.) Problem Solving FIM Score 6. Mod. [place] (Mild difficulty or needs more time w/ complex.) Transfers Mode of Locomotion: Wheelchair Bed/Chair/Wheelchair Transfers 4. Minimal Assistance (Patient = 75% or more. FIM Score Needs touching.) Locomotion- walk/wheelchair Ambulation Distance 1 Dressing-lower body Lower Body Dressing Device Heating And Ventilating Tender/Stick,Sock Aid Patient retrieves clothing Yes items: Lower Body Dressing FIM Score 5. Supv./Set-Up ([place] sets out clothes or applies pros./orth.) - Labs CBC & Chem 7: 12/20/20 07:07 12/20/20 07:07 Labs: Laboratory Results - last 72 hr 12/18/20 12/19/20 12/19/20 22:43 07:39 11:03 WBC RBC Hgb Hct MCV MCH MCHC RDW Plt Count Sodium Potassium Chloride Carbon Dioxide Anion Gap BUN Creatinine Estimated GFR BUN/Creatinine Ratio Glucose POC Glucose 101 75 81 Calcium 12/19/20 12/19/20 12/20/20 16:15 21:19 07:07 WBC 7.8 RBC 4.81 Hgb 15.2 Hct 43.9 MCV 91 MCH 32 MCHC 35 H RDW 14.2 Plt Count 199 Sodium Potassium Chloride Carbon Dioxide Anion Gap BUN Creatinine Estimated GFR BUN/Creatinine Ratio Glucose POC Glucose 134 H 93 Calcium 12/20/20 12/20/20 12/20/20 07:07 07:16 11:55 WBC RBC Hgb Hct MCV MCH MCHC RDW Plt Count Sodium 135 L Potassium 3.8 Chloride 97.6 L Carbon Dioxide 28 Anion Gap 13 BUN 12 Creatinine 0.9 Estimated GFR > 60 BUN/Creatinine Ratio 13 Glucose 88 POC Glucose 92 111 H Calcium 10.0 12/20/20 12/20/20 12/21/20 16:02 20:31 07:29 WBC RBC Hgb Hct MCV MCH MCHC RDW Plt Count Sodium Potassium Chloride Carbon Dioxide Anion Gap BUN Creatinine Estimated GFR BUN/Creatinine Ratio Glucose POC Glucose 136 H 115 H 85 Calcium 12/21/20 12/21/20 11:55 16:34 WBC RBC Hgb Hct MCV MCH MCHC RDW Plt Count Sodium Potassium Chloride Carbon Dioxide Anion Gap BUN Creatinine Estimated GFR BUN/Creatinine Ratio Glucose POC Glucose 110 H 117 H Calcium Assessment and Plan CVA: Continue Secondary Stroke Prevention (Antithrombotic, Statin (Goal LDL-C <70), BP control (Goal <140/90), GLU control (Goal A1c <7), and lifestyle modification). Monitor for recurrent stroke or post-stroke recrudescence. Dual antiplatelet therapy for 21 days followed by aspirin alone. Statin okay to continue at lower dose as lipids are at goal. Continue neuromotor therapy as above. Family training when available. Monitor for post stroke depression, cognitive deficits, seizure, dysphagia, aphasia, shoulder hand syndrome, sensory deficits, spasticity, bowel/bladder deficits, sleep disturbance, vision deficits and DVT. Prognosis for recovery and Secondary Stroke Prevention discussed. Follow up with Neurology. No driving until cleared by Neurologist. MRI showed an acute/subacute 9 mm left leopoldo lacunar infarct. 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 Resting hand splint for right upper extremity use tolerated well Hypertension: Continue medication. Monitor blood pressure. Adjust medications as needed for normotension. Decrease hydralazine on 12/11. Hold for hypotension. Goal SBP <140 Diabetes: Continue carb controlled diet. Monitor glucose on a regular level with target of euglycemia. Patient's most recent A1c is 6.0. Patient previously diet controlled. We will continue sliding scale and monitor for need to start any other medications. Right foot drop: Patient will need an order for AFO prior to discharge. May need a different AFO, at this point may benefit from hinged Dyspnea: Chest x-ray negative for any acute changes. Seems improved. Continue to monitor for improvement BPH: Continue Flomax, monitor for any signs of bladder dysfunction or incontinence. 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 Monitor for resolution over the coming days and utilize medication as needed. Dysarthria: Continue speech therapy to improve patient's ability to enunciate a nd make himself clearly understood. Aphasia: Continue speech therapy to improve patient's ability to communicate. At this point does not appear the patient will need alternative means of communication and hopefully this will clear over the coming days. Dysphagia: Continue modified diet. Speech therapy on board to monitor and upgrade diet as able once patient is able to swallow safely. MBS as needed. Monitor for safety and aspiration precautions in place. ADL dysfunction: OT will work on improving ability to perform ADLs (including assistive devices) to increase independence and decrease caregiver burden and improve functional transfers and mobility training. Difficulty walking: PT will work on gait training and proper use of assistive devices and advance as appropriate to use of stairs and outside ambulation on uneven surfaces. Unsteadiness on feet: PT will work on improving static and dynamic sitting and standing balance as well as proper use of assistive devices to decrease risk of falls. Abnormality of gait: PT will work to improve safety and efficiency of gait through neuromotor training and gait training along with instruction on proper use of assistive devices. Muscle weakness: PT & OT will work on strengthening exercises to improve functional strength including mixture of closed and open kinetic chain exercises. Debility: PT & OT will work on improving overall functional status to improve participation with ADLs, mobility and social involvement. Fatigue: PT & OT will work on improving endurance through aerobic exercises and therapeutic activity while monitoring patients tolerance for activity and vital signs as needed. DVT ppx: Heparin twice daily Pain: Continue physical modalities in therapy and pain medications as needed to achieve functional pain control. Sleep: Monitor and address as needed. Bowel: Monitor and address as needed. Appetite: Monitor and address as needed. Discharge planning: Pending therapy progress and care plan meeting. Will continue discussion with therapy team, SW, patient and family. Will look to discharge patient on December 22. Will need AFO, 3 and 1, and a hemiwalker at this point. May be able to improve ambulation and move the patient to a different assistive device prior to discharge Restrictions/ Precautions: Falls, aspiration WB status: FWB Functional Hx: ADLs: Independent Cognition: Independent Mobility: No AD Barriers to Discharge: Decreased mobility and ability to perform self care, balance deficits, weakness Estimated Length of Stay: 1014 days Discharge Destination: Home with family
[2020-12-22] MEDS: hydrALAZINE 25 MG TAB PO SCH (06:25)
--- NOTE | 2020-12-22 07:18 | Progress Note ---
Subjective Date of service: 12/22/20 Principal diagnosis: CVA Interval history: 75-year-old male brought to the hospital with difficulty speaking and gait/balance issues. Symptoms started previous day on a flight from [place] to [place] with a layover in [place] at which point he could not walk. Because of this he was outside the window for TPA and had a low stroke score. Clinical picture was not consistent with large vessel occlusion. A1c at the outside hospital was 6.0. 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 Patient had mild aphasia. He was started on a modified diet for dysphagia. He was started on IV antihypertensives for hypertensive emergency. Neurology recommends dual antiplatelet therapy for 3 weeks followed by aspirin only regimen. MRI brain performed on 11/28 showed an acute to subacute 9 mm lacunar infarct in the left leopoldo. Interval History: Patient is participating in therapy and making reasonable progress. Taking rest breaks as needed. +BM. Denies pain, palpitations, dyspnea, cough, N/V. Continue to monitor. No toe pain today. Advance to walking on quad cane without too much difficulty. No acute events overnight. CVA: Continue secondary stroke prevention. No signs of worsening neurologic function, shoulder-hand syndrome or spasticity. Continue therapy to improve function. Resting hand splint for right upper extremity to improve function, increase stretching during time out of therapy and reduce risk of contracture. Patient will need AFO for right foot drop Right foot drop: Patient currently ambulating utilizing railing on the wall and a right AFO. Will need to order AFO (posterior) from [facility] prior to discharge, have consulted orthotics. Dyspnea: Chest x-ray reviewed and is negative for acute changes. Monitor for improvement Hypertension: Patient mostly at goal with blood pressure. Patient is at max dose of amlodipine and lisinopril, increased hydralazine and monitor. Continue to monitor blood pressure on reduced dose of hydralazine. Continue to monitor and modify dose to keep patient less than 140/90. Diabetes: Well controlled so far. Continue carb controlled diet and medications and adjust for euglycemia. Dysarthria: Continue speech therapy to improve patient's ability to enunciate more clearly. Patient fairly understandable Aphasia: Continue speech therapy to improve patient's ability to communicate and make his needs known, improving Dysphagia: Continue modified diet and speech therapy. MBS as needed. Advance as able ? Central pain syndrome? Allodynia of right great toe: Slight issue with toe pain today, but better. Does not seem as bad as it was previously. Will continue to monitor for any further signs or symptoms. All records, vitals, labs and medications were reviewed. No other issues per patient, nursing or therapy. Patient discussed during team conference. Making good progress. We will look to discharge on Sunday. May need a different AFO at this point, will discuss further. Objective - Exam Narrative Exam: MUSCULOSKELETAL SPECIALTY EXAM CONSTITUTIONAL: Well developed, well nourished, appropriately groomed. RIGHT hand dominant. RESPIRATORY: Clear to auscultation bilaterally, no increased work of breathing CARDIOVASCULAR: Regular Rate/ Rhythm, no swelling, edema or tenderness in BUE or BLE. Pulses palpable in all extremities. All extremities warm. GI: + bowel sounds, soft, NTTP, nondistended. INTEGUMENTARY: Normal, no lesion, rash, masses or bruising noted in extremities. MUSCULOSKELETAL: BUE and BLE normal without defect, crepitus, subluxation, effusion, arthritic changes or TTP. Resting hand splint on right upper extremity. Right foot drop Toe pain better today, no extensor tone with light touch, tolerates palpation R 2 /5 L 4+ /5 ROM decreased on right, normal on left Tone normal NEURO: CN VII : Right facial droop CN VIII : Hearing intact to finger rustle with decreased hearing bilaterally CN XI : Head rotation intact, decreased right shoulder shrug CN XII : Tongue protrudes slightly right Sensation intact in all extremities without extinction. No tremor noted in 4 extremities. Follows 2 step commands. Aphasia present Dysarthria present Dysphagia present Neglect not appreciated POSTURE and GAIT: Sitting posture good. Balance and gait observed with therapy, patient walking with quad cane and right AFO. Balance seems okay, gait improving. PSYCH: Alert, oriented x3, affect appears euthymic. Insight appears intact. - Constitutional Vitals: Vital Signs - 12hr 12/21/20 12/21/20 12/21/20 19:29 21:55 22:00 Temperature 98.3 F Pulse Rate 72 74 Respiratory 18 Rate Respiratory 17 Rate [Right Toe ] Blood Pressure 124/81 124/81 Blood Pressure [Left] O2 Sat by Pulse 96 Oximetry 12/22/20 12/22/20 06:23 06:25 Temperature 97.7 F Pulse Rate 78 78 Respiratory 17 Rate Respiratory Rate [Right Toe ] Blood Pressure 150/79 Blood Pressure 150/75 [Left] O2 Sat by Pulse 100 Oximetry - Allied health notes FIMS assessment as documented by PT/OT/ST: Social interaction/Memory/Problem solving Social Interaction FIM Score 6. Mod. Lesage (Mostly appropriate. May need meds. No supv.) Memory FIM Score 6. Modified Lesage(Mild difficulty remembering people/routines.) Problem Solving FIM Score 6. Mod. Lesage (Mild difficulty or needs more time w/ complex.) Transfers Mode of Locomotion: Wheelchair Bed/Chair/Wheelchair Transfers 4. Minimal Assistance (Patient = 75% or more. FIM Score Needs touching.) Locomotion- walk/wheelchair Ambulation Distance 1 Dressing-lower body Lower Body Dressing Device Laser Engineer/Stick,Sock Aid Patient retrieves clothing Yes items: Lower Body Dressing FIM Score 5. Supv./Set-Up ([place] sets out clothes or applies pros./orth.) - Labs CBC & Chem 7: 12/20/20 07:07 12/20/20 07:07 Labs: Laboratory Results - last 72 hr 12/19/20 12/19/20 12/19/20 07:39 11:03 16:15 WBC RBC Hgb Hct MCV MCH MCHC RDW Plt Count Sodium Potassium Chloride Carbon Dioxide Anion Gap BUN Creatinine Estimated GFR BUN/Creatinine Ratio Glucose POC Glucose 75 81 134 H Calcium 12/19/20 12/20/20 12/20/20 21:19 07:07 07:07 WBC 7.8 RBC 4.81 Hgb 15.2 Hct 43.9 MCV 91 MCH 32 MCHC 35 H RDW 14.2 Plt Count 199 Sodium 135 L Potassium 3.8 Chloride 97.6 L Carbon Dioxide 28 Anion Gap 13 BUN 12 Creatinine 0.9 Estimated GFR > 60 BUN/Creatinine Ratio 13 Glucose 88 POC Glucose 93 Calcium 10.0 12/20/20 12/20/20 12/20/20 07:16 11:55 16:02 WBC RBC Hgb Hct MCV MCH MCHC RDW Plt Count Sodium Potassium Chloride Carbon Dioxide Anion Gap BUN Creatinine Estimated GFR BUN/Creatinine Ratio Glucose POC Glucose 92 111 H 136 H Calcium 12/20/20 12/21/20 12/21/20 20:31 07:29 11:55 WBC RBC Hgb Hct MCV MCH MCHC RDW Plt Count Sodium Potassium Chloride Carbon Dioxide Anion Gap BUN Creatinine Estimated GFR BUN/Creatinine Ratio Glucose POC Glucose 115 H 85 110 H Calcium 12/21/20 12/21/20 16:34 22:40 WBC RBC Hgb Hct MCV MCH MCHC RDW Plt Count Sodium Potassium Chloride Carbon Dioxide Anion Gap BUN Creatinine Estimated GFR BUN/Creatinine Ratio Glucose POC Glucose 117 H 95 Calcium Assessment and Plan CVA: Continue Secondary Stroke Prevention (Antithrombotic, Statin (Goal LDL-C <70), BP control (Goal <140/90), GLU control (Goal A1c <7), and lifestyle modification). Monitor for recurrent stroke or post-stroke recrudescence. Dual antiplatelet therapy for 21 days followed by aspirin alone. Statin okay to continue at lower dose as lipids are at goal. Continue neuromotor therapy as above. Family training when available. Monitor for post stroke depression, cognitive deficits, seizure, dysphagia, aphasia, shoulder hand syndrome, sensory deficits, spasticity, bowel/bladder deficits, sleep disturbance, vision deficits and DVT. Prognosis for recovery and Secondary Stroke Prevention discussed. Follow up with Neurology. No driving until cleared by Neurologist. MRI showed an acute/subacute 9 mm left leopoldo lacunar infarct. 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 Resting hand splint for right upper extremity use tolerated well Hypertension: Continue medication. Monitor blood pressure. Adjust medications as needed for normotension. Decrease hydralazine on 12/11. Hold for hypotension. Goal SBP <140 Diabetes: Continue carb controlled diet. Monitor glucose on a regular level with target of euglycemia. Patient's most recent A1c is 6.0. Patient previously diet controlled. We will continue sliding scale and monitor for need to start any other medications. Right foot drop: Patient will need an order for AFO prior to discharge. May need a different AFO, at this point may benefit from hinged Dyspnea: Chest x-ray negative for any acute changes. Seems improved. Continue to monitor for improvement BPH: Continue Flomax, monitor for any signs of bladder dysfunction or incontinence. 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 Monitor for resolution over the coming days and utilize medication as needed. Dysarthria: Continue speech therapy to improve patient's ability to enunciate and make himself clearly understood. Aphasia: Continue speech therapy to improve patient's ability to communicate. At this point does not appear the patient will need alternative means of commun ication and hopefully this will clear over the coming days. Dysphagia: Continue modified diet. Speech therapy on board to monitor and upgrade diet as able once patient is able to swallow safely. MBS as needed. Monitor for safety and aspiration precautions in place. ADL dysfunction: OT will work on improving ability to perform ADLs (including assistive devices) to increase independence and decrease caregiver burden and improve functional transfers and mobility training. Difficulty walking: PT will work on gait training and proper use of assistive devices and advance as appropriate to use of stairs and outside ambulation on uneven surfaces. Unsteadiness on feet: PT will work on improving static and dynamic sitting and standing balance as well as proper use of assistive devices to decrease risk of falls. Abnormality of gait: PT will work to improve safety and efficiency of gait thro [facility] neuromotor training and gait training along with instruction on proper use of assistive devices. Muscle weakness: PT & OT will work on strengthening exercises to improve functional strength including mixture of closed and open kinetic chain exercises. Debility: PT & OT will work on improving overall functional status to improve participation with ADLs, mobility and social involvement. Fatigue: PT & OT will work on improving endurance through aerobic exercises and therapeutic activity while monitoring patients tolerance for activity and vital signs as needed. DVT ppx: Heparin twice daily Pain: Continue physical modalities in therapy and pain medications as needed to achieve functional pain control. Sleep: Monitor and address as needed. Bowel: Monitor and address as needed. Appetite: Monitor and address as needed. Discharge planning: Pending therapy progress and care plan meeting. Will continue discussion with therapy team, SW, patient and family. Will look to discharge patient on December 22. Will need AFO, 3 and 1, and a hemiwalker at this point. May be able to improve ambulation and move the patient to a different assistive device prior to discharge Restrictions/ Precautions: Falls, aspiration WB status: FWB Functional Hx: ADLs: Independent Cognition: Independent Mobility: No AD Barriers to Discharge: Decreased mobility and ability to perform self care, hetal nce deficits, weakness Estimated Length of Stay: 1014 days Discharge Destination: Home with family
--- NOTE | 2020-12-22 08:12 | Discharge Summary ---
Providers - Providers Date of Admission: 12/02/20 19:42 Date of discharge: 12/22/20 Attending physician: SOPHIA ORDONEZ III, MD 12/02/20 17:50 Occupational Therapy Evaluate and Treat [CONS] Routine Comment: Reason For Exam: ADL dysfunction Physical Therapy Evaluation and Treat [CONS] Routine Comment: Reason For Exam: Mobility Dysfunction 12/02/20 17:55 Consult to Case Management [CONS] Routine Services Needed at Discharge: Home Health Services Notified:: cm notified Speech Therapy Evaluation and Treat [CONS] Routine Reason For Exam: CVA, Assess/Treat Speech/Cog/Swallow 12/14/20 10:11 Consult to Rail Car Operator [CONS] Routine Reason For Exam: Maintenance Groundman Orthotics, R Foot Drop, AFO posterior Primary care physician: SHABNAM LOCKETT Hospitalization Reason for admission: CVA Condition: Good Hospital course: 75-year-old male brought to the hospital with difficulty speaking and gait/ba fletcher issues. Symptoms started previous day on a flight from [place] to [place] with a layover in [place] at which point he could not walk. Because of this he was outside the window for TPA and had a low stroke score. Clinical picture was not consistent with large vessel occlusion. A1c at the outside hospital was 6.0. 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 Patient had mild aphasia. He was started on a modified diet for dysphagia. He was started on IV antihypertensives for hypertensive emergency. Neurology recommends dual antiplatelet therapy for 3 weeks followed by aspirin only regimen. MRI brain performed on 11/28 showed an acute to subacute 9 mm lacunar infarct in the left leopoldo. CVA: Continue Secondary Stroke Prevention (Antithrombotic, Statin (Goal LDL-C <70), BP control (Goal <140/90), GLU control (Goal A1c <7), and lifestyle modification). Monitor for recurrent stroke or post-stroke recrudescence. Dual antiplatelet therapy for 21 days followed by aspirin alone. Statin okay to continue at lower dose as lipids are at goal. Monitor for post stroke depression, cognitive deficits, seizure, dysphagia, aphasia, shoulder hand syndrome, sensory deficits, spasticity, bowel/bladder deficits, sleep disturbance, vision deficits and DVT. Prognosis for recovery and Secondary Stroke Prevention discussed. Follow up with Neurology. No driving until cleared by Neurologist. MRI showed an acute/subacute 9 mm left leopoldo lacunar infarct. 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 Resting hand splint for right upper extremity use tolerated well Hypertension: Continue medication. Monitor blood pressure. Adjust medications as needed for normotension. Decrease hydralazine on 12/11. Hold for hyp otension. Goal SBP <140 Diabetes: Continue carb controlled diet. Monitor glucose on a regular level with target of euglycemia. Patient's most recent A1c is 6.0. Patient previously diet controlled. We will continue sliding scale and monitor for need to start any other medications. Right foot drop: Patient will need an order for AFO prior to discharge. May need a different AFO, at this point may benefit from hinged Dyspnea: Chest x-ray negative for any acute changes. Seems improved. Continue to monitor for improvement BPH: Continue Flomax, monitor for any signs of bladder dysfunction or incontinence. 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 Monitor for resolution over the coming days and utilize medication as needed. Dysarthria: Improved, d/c from HOU[employer] DES[employer] Aphasia: Improved Dysphagia: Continue modified diet(Mechanical Soft with Thin liquids). ADL dysfunction: OT will work on improving ability to perform ADLs (including assistive devices) to increase independence and decrease caregiver burden and improve functional transfers and mobility training. Difficulty walking: PT will work on gait training and proper use of assistive devices and advance as appropriate to use of stairs and outside ambulation on uneven surfaces. Ambulates with WBQC and Right AFO Unsteadiness on feet: PT will work on improving static and dynamic sitting and s tanding balance as well as proper use of assistive devices to decrease risk of falls. Abnormality of gait: PT will work to improve safety and efficiency of gait through neuromotor training and gait training along with instruction on proper use of assistive devices. Muscle weakness: PT & OT will work on strengthening exercises to improve functional strength including mixture of closed and open kinetic chain exercises. Debility: PT & OT will work on improving overall functional status to improve participation with ADLs, mobility and social involvement. Fatigue: PT & OT will work on improving endurance through aerobic exercises and therapeutic activity while monitoring patients tolerance for activity and vital signs as needed. Disposition: DC/TX- HOME UNDER HOME [facility] Final Discharge Diagnosis (Prints w/discharge instructions): CVA, HTN Time spent for discharge: >30 mins Core Measure Documentation - Palliative Care Palliative Care/ Comfort Measures: Not Applicable - Core Measures Any of the following diagnoses?: stroke - Stroke Discharge Requirements Statin for LDL = or >70 mg/dl on DC: Yes Anticoag for atrial fib/atrial flutter: Not Applicable Antithrombotic for ischemic stroke: Yes Exam - Physical Exam Narrative exam: MUSCULOSKELETAL SPECIALTY EXAM CONSTITUTIONAL: Well developed, well nourished, appropriately groomed. RIGHT hand dominant. RESPIRATORY: Clear to auscultation bilaterally, no increased work of breathing CARDIOVASCULAR: Regular Rate/ Rhythm, no swelling, edema or tenderness in BUE or BLE. Pulses palpable in all extremities. All extremities warm. GI: + bowel sounds, soft, NTTP, nondistended. INTEGUMENTARY: Normal, no lesion, rash, masses or bruising noted in extremities. MUSCULOSKELETAL: BUE and BLE normal without defect, crepitus, subluxation, effusion, arthritic changes or TTP. Resting hand splint on right upper extremity. Right foot drop Toe pain better today, no extensor tone with light touch, tolerates palpation R 3 - 4- /5 L 4+ /5 ROM decreased on right, normal on left Tone normal NEURO: CN VII : Right facial droop CN VIII : Hearing intact to finger rustle with decreased hearing bilaterally CN XI : Head rotation intact, decreased right shoulder shrug CN XII : Tongue protrudes slightly right Sensation intact in all extremities without extinction. No tremor noted in 4 extremities. Follows 2 step commands. Aphasia present Dysarthria present Dysphagia present Neglect not appreciated POSTURE and GAIT: Sitting posture good. Balance and gait observed with therapy, patient walking with quad cane and right AFO. Balance seems okay, gait improving. PSYCH: Alert, oriented x3, affect appears euthymic. Insight appears intact. - Constitutional Vitals: Temp Pulse Resp BP Pulse Ox 97.7 F 78 17 150/79 100 12/22/20 06:23 12/22/20 06:25 12/22/20 06:23 12/22/20 06:25 12/22/20 06:23 Plan Activity: no driving until cleared by PCP, up only with assistance, fall precautions Diet: diabetic (Healthy heart with Mechanical Soft and Thin Liquids) Special Instructions: physical therapy, occupational therapy, home health RN Durable Medical Equipment Needed Upon Discharge: Cane-Quad, Bedside Commode Care Plan Goals: Patient will need to follow-up with PCP after discharge for further monitoring of of chronic medical conditions.. Patient will also need to follow-up with neurology that is within his network for monitoring of CVA. Patient is on dual antiplatelet therapy for a total of 21 days after which he will continue on aspirin only regimen. Follow up with: SHABNAM LOCKETT MD [Primary Care Provider] - 7 Days Prescriptions: AtorvaSTATin [Lipitor] 20 mg PO QHS #30 tablet amLODIPine 10 mg PO QDAY #30 tablet hydrALAZINE [Apresoline TAB] 25 mg PO Q8HR #90 tablet Tamsulosin [Flomax] 0.4 mg PO QDAY #30 capsule metFORMIN [Glucophage] 500 mg PO BIDDIAB #60 tablet Aspirin EC [Halfprin EC] 81 mg PO QDAY #30 tablet Clopidogrel [Plavix] 75 mg PO QDAY 2 Days #2 tablet lisinopriL [Zestril TAB] 40 mg PO QDAY #30 tablet
[2020-12-22] MEDS: ASPIRIN EC 81 MG TAB PO SCH (09:01)
[2020-12-22] MEDS: HEPARIN 5,000 UNIT/1 ML VIAL SUB-Q SCH (09:01)
[2020-12-22] MEDS: LISINOPRIL 40 MG TAB PO SCH (09:01)
[2020-12-22] MEDS: metFORMIN 500 MG TAB PO SCH (09:01)
[2020-12-22] MEDS: TAMSULOSIN 0.4 MG CAP PO SCH (09:02)
[2020-12-22] MEDS: CLOPIDOGREL 75 MG TAB PO SCH (09:02)
[2020-12-22] MEDS: amLODIPine 10 MG TAB PO SCH (09:04)
[2020-12-22 09:09] VITALS: BP 154/85
[2020-12-22] MEDS: INSULIN LISPRO 100 UNIT/ML SUB-Q SCH (09:09)
[2020-12-22] MEDS: BRIMONIDINE 0.15% OPHTH SOLN OU SCH (09:30)
== END 2020-12-22 14:00 | disposition home or self-care (01) | DRG 66 ==
LOC: UNDOADMIN 14:41 → 3A 14:41 → 3B 19:42
PROVIDERS: ADMIT Physical Medicine & Rehabilitation; ATTEND Physical Medicine & Rehabilitation
DX: I63.9 Cerebral infarction, unspecified (principal); N40.0 Benign prostatic hyperplasia without lower urinary tract symptoms; R78.5 Finding of other psychotropic drug in blood; R53.81 Other malaise; I10 Essential (primary) hypertension; E11.9 Type 2 diabetes mellitus without complications; E78.5 Hyperlipidemia, unspecified; M21.371 Foot drop, right foot; Z86.73 Personal history of transient ischemic attack (TIA), and cerebral infarction without residual deficits; Z82.3 Family history of stroke; Z82.49 Family history of ischemic heart disease and other diseases of the circulatory system; Z83.3 Family history of diabetes mellitus; Z79.899 Other long term (current) drug therapy; Z79.4 Long term (current) use of insulin; Z98.49 Cataract extraction status, unspecified eye; Z79.82 Long term (current) use of aspirin
CPT/HCPCS: 36415; 71046; 80048; 80053; 82962; 84550; 85025; 85027; 94640; G0378; A9270-GY; J1644; Q0162